=== PATIENT | male | born 1950 | race Two or more races ===

== ENCOUNTER 2024-07-13 04:09 | Inpatient (IN) | payer OTHER ==
[2024-07-13] VITALS (45 sets, daily range): BP systolic 88–141; BP diastolic 44–96; TEMP 98–98.8; O2SAT 99–100
[~2024-07-13] VITALS: Ht 152.4 cm; Wt 54.0 kg
[2024-07-13] MEDS ORDERED: ACETAMINOPHEN 650 MG/SUPP.RECT RC ONE (04:14)
[2024-07-13] MEDS ORDERED: VANCOMYCIN 1 GM /D5W 250 ML PB IV ONE (04:14)
[2024-07-13] MEDS ORDERED: CEFEPIME 1 GM VIAL ONE (04:14)
[2024-07-13] MEDS: CEFEPIME 1 GM in IV D5W 50 ML IV ONE (04:18)
[2024-07-13 04:29] LABS: BASOPHILS % (AUTO) 0.1 % (0.0-2.0); EOSINOPHILS # (AUTO) 0.1 K/uL (0.0-0.7); EOSINOPHILS % (AUTO) 0.3 % (0.0-6.0); HEMATOCRIT 37 % (39-51); HEMOGLOBIN 11.7 g/dL (13.5-17.5); LYMPHOCYTES # (AUTO) 0.6 K/uL (0.8-4.8); LYMPHOCYTES % (AUTO) 3.8 % (20.0-44.0); MEAN CORPUSCULAR HEMOGLOBIN 28 PG (26.0-33.0); MEAN CORPUSCULAR HGB CONC 31 g/dl (31.0-36.0); MEAN CORPUSCULAR VOLUME 89 fL (80-96); MONOCYTES # (AUTO) 0.7 K/uL (0.1-1.30); MONOCYTES % (AUTO) 4.4 % (2.0-12.0); NEUTROPHILS # (AUTO) 15.4 K/uL (1.8-8.9); NEUTROPHILS % (AUTO) 91.4 % (43.0-81.0); PLATELET COUNT (AUTO) 415 K/uL (150-450); RED CELL DISTRIBUTION WIDTH 17.5 % (11.5-15.0); WHITE BLOOD COUNT (AUTO) 16.9 K/uL (4.3-11.0)
[2024-07-13] MEDS: IV NS 0.9% 1,000 ML BAG IV ONE (04:38)
[2024-07-13] MEDS: ACETAMINOPHEN 650 MG/SUPP.RECT RC ONE (04:38)
[2024-07-13] MEDS: VANCOMYCIN 1 GM in IV D5W 250 ML IV ONE (04:39)
[2024-07-13 04:44] LABS: INR 1.27 (0.91-1.10); PARTIAL THROMBOPLASTIN TIME 33.2 SEC (24.3-34.3); PROTHROMBIN TIME 13.3 SECS (9.2-11.1)
[2024-07-13 04:58] LABS: APPEARANCE,URINE CLEAR (CLEAR); BILIRUBIN,URINE NEGATIVE (NEGATIVE); BLOOD, URINE NEGATIVE Ery/uL (NEGATIVE); COLOR,URINE YELLOW (YELLOW); KETONES,URINE NEGATIVE (NEGATIVE); LEUKOCYTE ESTERASE ,URINE NEGATIVE (NEGATIVE); NITRITE, URINE NEGATIVE (NEGATIVE); PROTEIN,URINE 2+ mg/dl (NEGATIVE); UGLUCOSE NEGATIVE (NEGATIVE); UROBILINOGEN,URINE 0.2 EU/dL (0.2)
[2024-07-13 05:02] LABS: CALCIUM, SERUM 9.4 mg/dL (8.5-10.1); CARBON DIOXIDE 31 mmol/L (21-32); CHLORIDE 104 mmol/L (98-107); CREATININE 1.1 mg/dL (0.6-1.3); GLUCOSE 70 mg/dL (74-106); POTASSIUM 4.9 mmol/L (3.5-5.1); SODIUM SERUM 141 mmol/L (136-145); UREA NITROGEN, BLOOD 41 mg/dL (7-18)
[2024-07-13 05:05] LABS: BAND % (MANUAL) 6 % (0.0-5.0); EOSINOPHILS % (MANUAL) 1 % (0-4); LYMPHOCYTES % (MANUAL) 4 % (16-48); MONOCYTES % (MANUAL) 4 % (0-11.0); NEUTROPHILS % (MANUAL) 85 (42-76); PLATELET ESTIMATE ADEQUATE
[2024-07-13 05:08] LABS: ALANINE AMINOTRANSFERASE 37 U/L (12-78); ALBUMIN 2.3 g/dL (3.4-5.0); ALKALINE PHOSPHATASE 184 U/L (46-116); ASPARTATE AMINOTRANSFERASE 30 U/L (15-37); BILIRUBIN,DIRECT 0.1 mg/dL (0.0-0.2); BILIRUBIN,TOTAL 0.3 mg/dL (0.2-1.0); TOTAL PROTEIN, SERUM 8.9 g/dL (6.4-8.2)
[2024-07-13 05:10] LABS: LACTIC ACID 1.9 mmol/L (0.4-2.0)
[2024-07-13 05:49] LABS: ADD URINE CULTURE NO; BACTERIA,URINE None seen /HPF (None Seen); MUCUS,URINE Moderate /LPF (None Seen); RBC,URINE NONE SEEN /HPF (0-2); SQUAMOUS EPITHELIAL CELL,UR None Seen /HPF (None Seen); WBC,URINE NONE SEEN /HPF (0-3)
[2024-07-13] MEDS ORDERED: NOREPINEPHRINE 8MG/250ML RTU 250 ML IV ONE (05:54)
[2024-07-13] MEDS: NOREPINEPHRINE 8 MG in IV D5W 242 ML IV PRN ×2 (06:01→20:56)
[2024-07-13] MEDS ORDERED: CICL60SU2 TP (09:12)
[2024-07-13] MEDS ORDERED: MINO2.5T GT (09:12)
[2024-07-13] MEDS ORDERED: MULT-213 GT (09:12)
[2024-07-13] MEDS ORDERED: NA P133E RC (09:12)
[2024-07-13] MEDS ORDERED: INSU100V7 SQ (09:12)
[2024-07-13] MEDS ORDERED: NUT.237L30 GT (09:12)
[2024-07-13] MEDS ORDERED: LOSA100T31 GT (09:12)
[2024-07-13] MEDS ORDERED: PANT40SU2 GT (09:12)
[2024-07-13] MEDS ORDERED: METO50TA16 GT (09:12)
[2024-07-13] MEDS ORDERED: METF-440 GT (09:12)
[2024-07-13] MEDS ORDERED: ATOR20TA GT (09:12)
[2024-07-13] MEDS ORDERED: BISA10SU11 RC (09:12)
[2024-07-13] MEDS ORDERED: ACET-73 GT (09:12)
[2024-07-13] MEDS ORDERED: CHLO473M5 PO (09:12)
[2024-07-13] MEDS ORDERED: EPOE1000 SQ (09:12)
[2024-07-13] MEDS ORDERED: IPRA4AER IH ×2 (09:12)
[2024-07-13] MEDS ORDERED: DOCU100C36 GT (09:12)
[2024-07-13] MEDS ORDERED: INSU100V42 SQ (09:12)
[2024-07-13] MEDS ORDERED: FERR220S2 GT (09:12)
[2024-07-13] MEDS ORDERED: MAGN400O6 GT (09:12)
[2024-07-13] MEDS ORDERED: ASCO500L2 GT (09:12)
[2024-07-13] MEDS ORDERED: LOPE2CAP GT (09:12)
[2024-07-13] MEDS ORDERED: APIX5TAB GT (09:12)
[2024-07-13] MEDS ORDERED: ASPI-1169 GT (09:12)
[2024-07-13] MEDS ORDERED: FLUO30CR11 TP (09:12)
[2024-07-13] MEDS ORDERED: ACET325T53 GT (09:12)
[2024-07-13] MEDS ORDERED: NA PHOS,M-B/NA PHOS,DI-BA 1 EA ENEMA RC PRN (11:00)
[2024-07-13] MEDS ORDERED: MAGNESIUM HYDROXIDE 30 ML UDC GT PRN (11:00)
[2024-07-13] MEDS ORDERED: ACETAMINOPHEN ES 500 MG TABLET GT PRN (11:00)
[2024-07-13] MEDS ORDERED: LOPERAMIDE HCL (2 MG CAP) 2 MG CAPSULE GT PRN (11:00)
[2024-07-13] MEDS ORDERED: BISACODYL SUPP (10 MG) 10 MG/SUPP.RECT SUPP.RECT RC PRN (11:00)
[2024-07-13] MEDS ORDERED: ACETAMINOPHEN 325 MG TABLET PO PRN (11:00)
[2024-07-13] MEDS ORDERED: ALBUTEROL FS 2.5 MG/3 ML VIAL.NEB NEB PRN (11:30)
[2024-07-13] MEDS ORDERED: IPRATROPIUM NEB FS 0.5 MG/2.5 ML AMPUL.NEB NEB PRN (11:30)
[2024-07-13] MEDS ORDERED: PIPERACILLIN /TAZOBACTAM 3.375 G in IV D5W 50 ML IV SCH (12:00)
[2024-07-13] MEDS ORDERED: PIPERACILLIN /TAZOBACTAM 3.375 G in IV D5W 50 ML IV ONE (12:22)
[2024-07-13] MEDS: IV NS 0.9% 1,000 ML IV PRN (12:54)
[2024-07-13] MEDS: PIPERACILLIN /TAZOBACTAM 3.375 G in IV D5W 50 ML IV ONE (13:06)
[2024-07-13] MEDS: PANTOPRAZOLE 40 MG VIAL IV ONE (13:18)
[2024-07-13] MEDS: BLOOD SUGAR DIAGNOSTIC 1 EACH STRIP IN SCH (13:18)
[2024-07-13] MEDS: DEXTROSE 50%-WATER 50 ML DISP.SYRIN IV PRN (13:22)
[2024-07-13] MEDS: ALBUTEROL FS 2.5 MG/3 ML VIAL.NEB NEB SCH (13:30)
[2024-07-13] MEDS: IPRATROPIUM NEB FS 0.5 MG/2.5 ML AMPUL.NEB NEB SCH (13:30)
[2024-07-13] MEDS: VANCOMYCIN 750 MG in IV D5W 250 ML IV SCH (16:00)
[2024-07-13] MEDS: PIPERACILLIN /TAZOBACTAM 3.375 G in IV D5W 100 ML IV SCH (18:20)
[2024-07-13] MEDS: IV D5/0.45 NACL 1,000 ML IV PRN (20:49)
[2024-07-13] MEDS ORDERED: CICLOPIROX OLAMINE TP SCH (21:00)
[2024-07-13] MEDS: FLUOCINONIDE 0.05% CREAM 60 GM TUBE TP SCH (21:03)
[2024-07-13] MEDS: ATORVASTATIN 10 MG TABLET GT SCH (21:03)
[2024-07-13] MEDS ORDERED: METOPROLOL TARTRATE 50 MG TABLET GT SCH (22:00)
[2024-07-13] MEDS: PANTOPRAZOLE 40 MG VIAL IV SCH (23:08)
[2024-07-13] MEDS: INSULIN REGULAR, HUMAN 100 UNIT/ML 3 ML VIAL SQ PRN (23:21)
[2024-07-14] VITALS (94 sets, daily range): BP systolic 84–137; BP diastolic 45–77; TEMP 97.5–99.8; O2SAT 99–100
[2024-07-14 04:09] LABS: BASOPHILS % (AUTO) 0.2 % (0.0-2.0); EOSINOPHILS # (AUTO) 0.5 K/uL (0.0-0.7); EOSINOPHILS % (AUTO) 2.6 % (0.0-6.0); HEMATOCRIT 29 % (39-51); HEMOGLOBIN 8.8 g/dL (13.5-17.5); LYMPHOCYTES # (AUTO) 1.8 K/uL (0.8-4.8); LYMPHOCYTES % (AUTO) 9.1 % (20.0-44.0); MEAN CORPUSCULAR HEMOGLOBIN 28 PG (26.0-33.0); MEAN CORPUSCULAR HGB CONC 31 g/dl (31.0-36.0); MEAN CORPUSCULAR VOLUME 90 fL (80-96); MONOCYTES # (AUTO) 0.9 K/uL (0.1-1.30); MONOCYTES % (AUTO) 4.4 % (2.0-12.0); NEUTROPHILS # (AUTO) 16.7 K/uL (1.8-8.9); NEUTROPHILS % (AUTO) 83.7 % (43.0-81.0); PLATELET COUNT (AUTO) 312 K/uL (150-450); RED BLOOD CELL COUNT(AUTO) 3.17 MIL/uL (4.5-6.0); RED CELL DISTRIBUTION WIDTH 17.1 % (11.5-15.0); WHITE BLOOD COUNT (AUTO) 19.9 K/uL (4.3-11.0)
[2024-07-14 04:31] LABS: ALANINE AMINOTRANSFERASE 19 U/L (12-78); ALBUMIN 1.8 g/dL (3.4-5.0); ALKALINE PHOSPHATASE 116 U/L (46-116); ASPARTATE AMINOTRANSFERASE 16 U/L (15-37); BILIRUBIN,TOTAL 0.3 mg/dL (0.2-1.0); CALCIUM, SERUM 8.4 mg/dL (8.5-10.1); CARBON DIOXIDE 27 mmol/L (21-32); CHLORIDE 105 mmol/L (98-107); CREATININE 1.2 mg/dL (0.6-1.3); GLUCOSE 190 mg/dL (74-106); POTASSIUM 3.9 mmol/L (3.5-5.1); SODIUM SERUM 139 mmol/L (136-145); UREA NITROGEN, BLOOD 34 mg/dL (7-18)
[2024-07-14] MEDS: ASPIRIN 81 MG TAB.CHEW GT SCH (09:00)
[2024-07-14] MEDS: MULTIVIT W/MINERALS 1 TAB TABLET GT SCH (09:00)
[2024-07-14] MEDS: PANTOPRAZOLE 40 MG/PACK PACK GT SCH (09:00)
[2024-07-14] MEDS: ASCORBIC ACID 500 MG TABLET GT SCH (09:00)
[2024-07-14] MEDS: FERROUS SULFATE UDC 300 MG/5 ML UDC GT SCH (09:00)
[2024-07-14] MEDS ORDERED: LOSARTAN POTASSIUM 50 MG TABLET GT SCH (09:00)
[2024-07-14] MEDS ORDERED: GLUCERNA 1.2 1,000 ML BOTTLE JT PRN (11:00)
[2024-07-14] MEDS: INSULIN GLARGINE, 100 UNIT/ML CARTRIDGE SQ SCH (11:22)
[2024-07-14] MEDS: SOD FERRIC GLUC 125 MG in IV NS 0.9% 100 ML IV SCH (13:10)
[2024-07-14] MEDS: GLUCERNA 1.2 1,000 ML BOTTLE JT PRN (17:00)
[2024-07-15] VITALS (48 sets, daily range): BP systolic 97–151; BP diastolic 46–85; TEMP 97.8–99.1; O2SAT 98–100
[2024-07-15 05:46] LABS: BASOPHILS % (AUTO) 0.1 % (0.0-2.0); EOSINOPHILS # (AUTO) 0.7 K/uL (0.0-0.7); EOSINOPHILS % (AUTO) 6.8 % (0.0-6.0); HEMATOCRIT 27 % (39-51); HEMOGLOBIN 8.7 g/dL (13.5-17.5); LYMPHOCYTES % (AUTO) 9.7 % (20.0-44.0); MEAN CORPUSCULAR HEMOGLOBIN 29 PG (26.0-33.0); MEAN CORPUSCULAR HGB CONC 32 g/dl (31.0-36.0); MEAN CORPUSCULAR VOLUME 91 fL (80-96); MONOCYTES # (AUTO) 0.6 K/uL (0.1-1.30); MONOCYTES % (AUTO) 5.9 % (2.0-12.0); NEUTROPHILS # (AUTO) 8.4 K/uL (1.8-8.9); NEUTROPHILS % (AUTO) 77.5 % (43.0-81.0); PLATELET COUNT (AUTO) 265 K/uL (150-450); RED BLOOD CELL COUNT(AUTO) 3.02 MIL/uL (4.5-6.0); RED CELL DISTRIBUTION WIDTH 17.6 % (11.5-15.0); WHITE BLOOD COUNT (AUTO) 10.8 K/uL (4.3-11.0)
[2024-07-15 06:01] LABS: CALCIUM, SERUM 8.3 mg/dL (8.5-10.1); CARBON DIOXIDE 29 mmol/L (21-32); CHLORIDE 106 mmol/L (98-107); CREATININE 1.1 mg/dL (0.6-1.3); GLUCOSE 123 mg/dL (74-106); MAGNESIUM 2.4 mg/dL (1.8-2.4); POTASSIUM 3.8 mmol/L (3.5-5.1); SODIUM SERUM 137 mmol/L (136-145); UREA NITROGEN, BLOOD 24 mg/dL (7-18)
[2024-07-16] VITALS (21 sets, daily range): BP systolic 118–175; BP diastolic 59–83; TEMP 97.9–98.4; O2SAT 99–100
[2024-07-16 05:17] LABS: BASOPHILS % (AUTO) 0.2 % (0.0-2.0); EOSINOPHILS # (AUTO) 0.9 K/uL (0.0-0.7); EOSINOPHILS % (AUTO) 9.9 % (0.0-6.0); HEMATOCRIT 27 % (39-51); HEMOGLOBIN 8.4 g/dL (13.5-17.5); LYMPHOCYTES # (AUTO) 1.1 K/uL (0.8-4.8); MEAN CORPUSCULAR HEMOGLOBIN 28 PG (26.0-33.0); MEAN CORPUSCULAR HGB CONC 32 g/dl (31.0-36.0); MEAN CORPUSCULAR VOLUME 90 fL (80-96); MONOCYTES # (AUTO) 0.5 K/uL (0.1-1.30); MONOCYTES % (AUTO) 6.2 % (2.0-12.0); NEUTROPHILS # (AUTO) 6.1 K/uL (1.8-8.9); NEUTROPHILS % (AUTO) 70.7 % (43.0-81.0); PLATELET COUNT (AUTO) 267 K/uL (150-450); RED BLOOD CELL COUNT(AUTO) 2.97 MIL/uL (4.5-6.0); RED CELL DISTRIBUTION WIDTH 17.2 % (11.5-15.0); WHITE BLOOD COUNT (AUTO) 8.6 K/uL (4.3-11.0)
[2024-07-16] MEDS: LOSARTAN POTASSIUM 50 MG TABLET PO SCH (05:24)
[2024-07-16] MEDS: LOSARTAN POTASSIUM 50 MG TABLET GT SCH (05:30)
[2024-07-16 05:31] LABS: CALCIUM, SERUM 6.9 mg/dL (8.5-10.1); CARBON DIOXIDE 25 mmol/L (21-32); CHLORIDE 108 mmol/L (98-107); GLUCOSE 165 mg/dL (74-106); POTASSIUM 3.7 mmol/L (3.5-5.1); SODIUM SERUM 139 mmol/L (136-145); UREA NITROGEN, BLOOD 15 mg/dL (7-18)
[2024-07-16] MEDS ORDERED: PIPE3.379 IV (07:59)
[2024-07-16] MEDS ORDERED: APIX5TAB GT (07:59)
[2024-07-16] MEDS: METOPROLOL SUCCINATE 50 MG TAB.SR.24H PO SCH (08:00)
[2024-07-16] MEDS: LOSARTAN POTASSIUM 50 MG TABLET PO ONE (08:11)
[2024-07-16] MEDS: VANCOMYCIN 1 GM in IV D5W 250ml IV SCH (08:53)
[2024-07-16] MEDS: hydrALAZINE HCL IV 20 MG VIAL IV PRN (17:47)
[2024-07-17] MEDS ORDERED: LOSARTAN POTASSIUM 50 MG TABLET GT SCH (09:00)
== END 2024-07-16 22:15 | DRG 871 ==
LOC: ER 04:11 → ICU 10:40
PROVIDERS: ADMIT Internal Medicine; ATTEND Internal Medicine
PROC: 5A1945Z Respiratory Ventilation, 24-96 Consecutive Hours (ICD-10-PCS; principal; 2024-07-13)
PROC: 02HV33Z Insertion of Infusion Device into Superior Vena Cava, Percutaneous Approach (ICD-10-PCS; 2024-07-13)
PROC: B548ZZA Ultrasonography of Superior Vena Cava, Guidance (ICD-10-PCS; 2024-07-13)
DX: A41.9 Sepsis, unspecified organism (principal); J69.0 Pneumonitis due to inhalation of food and vomit; R65.21 Severe sepsis with septic shock; R57.1 Hypovolemic shock; R53.2 Functional quadriplegia; J96.10 Chronic respiratory failure, unspecified whether with hypoxia or hypercapnia; K92.2 Gastrointestinal hemorrhage, unspecified; Z99.11 Dependence on respirator [ventilator] status; G93.49 Other encephalopathy; F33.2 Major depressive disorder, recurrent severe without psychotic features; F03.93 Unspecified dementia, unspecified severity, with mood disturbance; D64.9 Anemia, unspecified; E78.5 Hyperlipidemia, unspecified; I10 Essential (primary) hypertension; Z86.73 Personal history of transient ischemic attack (TIA), and cerebral infarction without residual deficits; Z87.11 Personal history of peptic ulcer disease; Z93.0 Tracheostomy status; Y95 Nosocomial condition; R13.10 Dysphagia, unspecified; Z93.1 Gastrostomy status; Z20.822 Contact with and (suspected) exposure to COVID-19; N40.0 Benign prostatic hyperplasia without lower urinary tract symptoms; S91.012A Laceration without foreign body, left ankle, initial encounter; X58.XXXA Exposure to other specified factors, initial encounter; Y93.9 Activity, unspecified; Y92.129 Unspecified place in nursing home as the place of occurrence of the external cause; E11.40 Type 2 diabetes mellitus with diabetic neuropathy, unspecified; Z79.4 Long term (current) use of insulin; Z79.84 Long term (current) use of oral hypoglycemic drugs; Z74.01 Bed confinement status; L89.159 Pressure ulcer of sacral region, unspecified stage
CPT/HCPCS: 31720; 36415; 71045-TC; 80048-TC; 80053-TC; 80076-TC; 80202-TC; 81001; 82947-TC; 82962-TC; 83605-TC; 83735-TC; 84484-TC; 85025-TC; 85730-TC; 87040-TC; 87086-TC; 94002-TC; 94003-TC; 94762-TC; 94799-TC; A4223; G0378; J0360; J0692; J1815; J2470; J2543; J2916; J3370; J3371; J3490; J7030; J7050; J7060

== ENCOUNTER 2024-11-01 10:00 | Inpatient (IN) | payer OTHER ==
[~2024-11-01] VITALS: Ht 175.3 cm; Wt 73.0 kg
[~2024-11-01 10:00] MED LIST: ACET-73 GT; ACET325T53 GT; AMOX-430 PO; ASCO500L2 GT; ATOR20TA GT; BETA45CR3 TP; BISA10SU11 RC; CHLO473M5 PO; DIPH25TA25 GT; FERR220S2 GT; INSU100I45 SQ; INSU100V42 SQ; IPRA4AER IH; IVER3TAB2 GT; KETO15CR2 TP; LOPE2CAP GT; LOSA25TA27 PO; MAGN400O6 GT; MERO1VIA23 IV; METO25TA6 GT; MINO2.5T GT; NA P133E RC; NUT.237L30 GT; PANT40SU2 GT; SUCR1TAB31 PO
[2024-11-01] MEDS: IV NS 0.9% 1,000 ML BAG IV ONE (10:16)
[2024-11-01] MEDS: PIPERACILLIN /TAZOBACTAM 3.375 G in IV D5W 50 ML IV ONE (10:22)
[2024-11-01 10:53] LABS: BASOPHILS % (AUTO) 0.1 % (0.0-2.0); EOSINOPHILS # (AUTO) 0.2 K/uL (0.0-0.7); EOSINOPHILS % (AUTO) 3.8 % (0.0-6.0); LYMPHOCYTES # (AUTO) 0.8 K/uL (0.8-4.8); LYMPHOCYTES % (AUTO) 12.4 % (20.0-44.0); MEAN CORPUSCULAR HEMOGLOBIN 33 PG (26.0-33.0); MEAN CORPUSCULAR HGB CONC 34 g/dl (31.0-36.0); MEAN CORPUSCULAR VOLUME 96 fL (80-96); MONOCYTES # (AUTO) 0.5 K/uL (0.1-1.30); MONOCYTES % (AUTO) 8.6 % (2.0-12.0); NEUTROPHILS # (AUTO) 4.6 K/uL (1.8-8.9); NEUTROPHILS % (AUTO) 75.1 % (43.0-81.0); PLATELET COUNT (AUTO) 268 K/uL (150-450); RED CELL DISTRIBUTION WIDTH 14.3 % (11.5-15.0); WHITE BLOOD COUNT (AUTO) 6.1 K/uL (4.3-11.0)
[2024-11-01 10:54] LABS: RED BLOOD CELL COUNT(AUTO) 1.99 MIL/uL (4.5-6.0)
[2024-11-01 10:55] LABS: HEMATOCRIT 19 % (39-51); HEMOGLOBIN 6.5 g/dL (13.5-17.5)
[2024-11-01 10:58] LABS: CALCIUM, SERUM 9.9 mg/dL (8.5-10.1); CARBON DIOXIDE 30 mmol/L (21-32); CHLORIDE 82 mmol/L (98-107); CREATININE 5.8 mg/dL (0.6-1.3); GLUCOSE 117 mg/dL (74-106); POTASSIUM 5.3 mmol/L (3.5-5.1)
[2024-11-01 10:59] LABS: INR 1.12 (0.91-1.10); PARTIAL THROMBOPLASTIN TIME 28.3 SEC (24.3-34.3); PROTHROMBIN TIME 11.8 SECS (9.2-11.1)
[2024-11-01] MEDS: VANCOMYCIN 1 GM in IV D5W 250 ML IV ONE (11:00)
[2024-11-01 11:03] LABS: LACTIC ACID 1.4 mmol/L (0.4-2.0)
[2024-11-01 11:07] LABS: APPEARANCE,URINE CLEAR (CLEAR); BILIRUBIN,URINE NEGATIVE (NEGATIVE); BLOOD, URINE NEGATIVE Ery/uL (NEGATIVE); COLOR,URINE YELLOW (YELLOW); KETONES,URINE NEGATIVE (NEGATIVE); LEUKOCYTE ESTERASE ,URINE NEGATIVE (NEGATIVE); NITRITE, URINE NEGATIVE (NEGATIVE); PROTEIN,URINE 2+ mg/dl (NEGATIVE); UGLUCOSE NEGATIVE (NEGATIVE); UROBILINOGEN,URINE 0.2 EU/dL (0.2)
[2024-11-01] MEDS ORDERED: ASCO500T10 GT (11:08)
[2024-11-01] MEDS ORDERED: PERM60CR4 TP (11:08)
[2024-11-01] MEDS ORDERED: ZINC56.713 TP (11:08)
[2024-11-01] MEDS ORDERED: FERR325T24 GT (11:08)
[2024-11-01] MEDS ORDERED: AMIN30LI66 GT (11:08)
[2024-11-01] MEDS ORDERED: LOSA25TA27 GT (11:08)
[2024-11-01 11:10] LABS: ALANINE AMINOTRANSFERASE 17 U/L (12-78); ALBUMIN 2.1 g/dL (3.4-5.0); ALKALINE PHOSPHATASE 324 U/L (46-116); ASPARTATE AMINOTRANSFERASE 20 U/L (15-37); BILIRUBIN,DIRECT 0.2 mg/dL (0.0-0.2); BILIRUBIN,TOTAL 0.4 mg/dL (0.2-1.0)
[2024-11-01 11:18] LABS: SODIUM SERUM 118 mmol/L (136-145); UREA NITROGEN, BLOOD 136 mg/dL (7-18)
[2024-11-01 11:23] LABS: ADD URINE CULTURE YES; BACTERIA,URINE Few /HPF (None Seen); RBC,URINE 0-2 /HPF (0-2); SQUAMOUS EPITHELIAL CELL,UR None Seen /HPF (None Seen)
[2024-11-01 11:42] LABS: ANISOCYTOSIS 1+; EOSINOPHILS % (MANUAL) 6 % (0-4); LYMPHOCYTES % (MANUAL) 20 % (16-48); MONOCYTES % (MANUAL) 7 % (0-11.0); NEUTROPHILS % (MANUAL) 67 (42-76); PLATELET ESTIMATE ADEQUATE
[2024-11-01] MEDS: PANTOPRAZOLE 80 MG in IV NS 0.9% 500 ML IV ONE (12:40)
[2024-11-01 13:50] VITALS: BP 120/56; TEMP 97.2; O2SAT 100
[2024-11-01] MEDS ORDERED: LOPERAMIDE HCL (2 MG CAP) 2 MG CAPSULE GT PRN (14:00)
[2024-11-01] MEDS ORDERED: MAGNESIUM HYDROXIDE 30 ML UDC GT PRN (14:00)
[2024-11-01] MEDS ORDERED: NA PHOS,M-B/NA PHOS,DI-BA 1 EA ENEMA RC PRN (14:00)
[2024-11-01] MEDS ORDERED: BISACODYL SUPP (10 MG) 10 MG/SUPP.RECT SUPP.RECT RC PRN (14:00)
[2024-11-01] MEDS ORDERED: diphenhydrAMINE HCL ELIX 25 MG/10 ML UDC GT PRN (14:30)
[2024-11-01] MEDS ORDERED: ALBUTEROL FS 2.5 MG/3 ML VIAL.NEB NEB PRN (14:30)
[2024-11-01] MEDS ORDERED: IPRATROPIUM NEB FS 0.5 MG/2.5 ML AMPUL.NEB NEB PRN (14:30)
[2024-11-01] MEDS: IV NS 0.9% 1,000 ML IV SCH (15:48)
[2024-11-01 16:00] VITALS: BP 94/47; TEMP 97.3; O2SAT 100
[2024-11-01] MEDS ORDERED: FERROUS SULFATE (325 MG) 325 MG/TAB TABLET GT SCH (17:00)
[2024-11-01] MEDS: PIPERACILLIN /TAZOBACTAM 2.25 G in IV D5W 50 ML IV SCH (17:36)
[2024-11-01] MEDS: PROSOURCE / PROSTAT (PYXIS) 30 ML UDC GT SCH (17:36)
[2024-11-01] MEDS: FERROUS SULFATE UDC 300 MG/5 ML UDC GT SCH (17:36)
[2024-11-01 20:00] VITALS: BP 96/48; TEMP 97.8; O2SAT 100
[2024-11-01 20:21] LABS: HEMOGLOBIN 7.9 g/dL (13.5-17.5)
[2024-11-01] MEDS: IPRATROPIUM NEB FS 0.5 MG/2.5 ML AMPUL.NEB NEB SCH (20:24)
[2024-11-01] MEDS: ALBUTEROL FS 2.5 MG/3 ML VIAL.NEB NEB SCH (20:24)
[2024-11-01] MEDS: PANTOPRAZOLE 40 MG/PACK PACK GT SCH (21:05)
[2024-11-01] MEDS: ATORVASTATIN 10 MG TABLET GT SCH (21:05)
[2024-11-02] VITALS: BP 100/65; TEMP 97.5; O2SAT 100
[2024-11-02 04:00] VITALS: BP 110/65; TEMP 97.7; O2SAT 100
[2024-11-02 08:00] VITALS: BP 112/54; TEMP 97.5; O2SAT 100
[2024-11-02] MEDS: ASCORBIC ACID 500 MG TABLET GT SCH (08:25)
[2024-11-02] MEDS: ZINC OXIDE 56.7 GM TUBE TP SCH (08:26)
[2024-11-02 10:23] LABS: BASOPHILS % (AUTO) 0.1 % (0.0-2.0); EOSINOPHILS # (AUTO) 0.9 K/uL (0.0-0.7); EOSINOPHILS % (AUTO) 9.7 % (0.0-6.0); HEMATOCRIT 23 % (39-51); HEMOGLOBIN 7.9 g/dL (13.5-17.5); LYMPHOCYTES # (AUTO) 0.7 K/uL (0.8-4.8); LYMPHOCYTES % (AUTO) 7.5 % (20.0-44.0); MEAN CORPUSCULAR HEMOGLOBIN 31 PG (26.0-33.0); MEAN CORPUSCULAR HGB CONC 34 g/dl (31.0-36.0); MEAN CORPUSCULAR VOLUME 91 fL (80-96); MONOCYTES # (AUTO) 0.5 K/uL (0.1-1.30); MONOCYTES % (AUTO) 5.8 % (2.0-12.0); NEUTROPHILS # (AUTO) 7.2 K/uL (1.8-8.9); NEUTROPHILS % (AUTO) 76.9 % (43.0-81.0); PLATELET COUNT (AUTO) 261 K/uL (150-450); RED BLOOD CELL COUNT(AUTO) 2.51 MIL/uL (4.5-6.0); RED CELL DISTRIBUTION WIDTH 20.7 % (11.5-15.0); WHITE BLOOD COUNT (AUTO) 9.3 K/uL (4.3-11.0)
[2024-11-02 10:24] LABS: BILIRUBIN,TOTAL 0.5 mg/dL (0.2-1.0); CALCIUM, SERUM 9.8 mg/dL (8.5-10.1); CREATININE 5.7 mg/dL (0.6-1.3); POTASSIUM 4.8 mmol/L (3.5-5.1); TOTAL PROTEIN, SERUM 6.6 g/dL (6.4-8.2)
[2024-11-02 10:26] LABS: LACTIC ACID 1.2 mmol/L (0.4-2.0)
[2024-11-02 12:00] VITALS: BP 118/64; TEMP 97.5; O2SAT 100
[2024-11-02 16:00] VITALS: BP 127/61; TEMP 98.2; O2SAT 97
[2024-11-02] MEDS: GLUCERNA 1.2 1,000 ML BOTTLE NG PRN (17:55)
[2024-11-02] MEDS: METOPROLOL TARTRATE 25 MG TABLET PO SCH (18:48)
[2024-11-02 20:00] VITALS: BP 123/69; TEMP 99.5; O2SAT 99
[2024-11-02] MEDS: IV NS 0.9% 1,000 ML IV PRN (23:56)
[2024-11-03] VITALS: BP 117/93; TEMP 99.5; O2SAT 99
[2024-11-03 04:00] VITALS: BP 130/73; TEMP 99.5; O2SAT 100
[2024-11-03 06:46] LABS: OCCULT BLOOD STOOL POSITIVE (NEGATIVE)
[2024-11-03 07:21] LABS: BASOPHILS % (AUTO) 0.1 % (0.0-2.0); EOSINOPHILS # (AUTO) 0.3 K/uL (0.0-0.7); EOSINOPHILS % (AUTO) 3.5 % (0.0-6.0); HEMATOCRIT 23 % (39-51); HEMOGLOBIN 8.2 g/dL (13.5-17.5); LYMPHOCYTES # (AUTO) 0.5 K/uL (0.8-4.8); LYMPHOCYTES % (AUTO) 5.6 % (20.0-44.0); MEAN CORPUSCULAR HEMOGLOBIN 32 PG (26.0-33.0); MEAN CORPUSCULAR HGB CONC 35 g/dl (31.0-36.0); MEAN CORPUSCULAR VOLUME 92 fL (80-96); MONOCYTES # (AUTO) 0.6 K/uL (0.1-1.30); MONOCYTES % (AUTO) 6.4 % (2.0-12.0); NEUTROPHILS # (AUTO) 8.1 K/uL (1.8-8.9); NEUTROPHILS % (AUTO) 84.4 % (43.0-81.0); PLATELET COUNT (AUTO) 279 K/uL (150-450); RED BLOOD CELL COUNT(AUTO) 2.52 MIL/uL (4.5-6.0); RED CELL DISTRIBUTION WIDTH 20.4 % (11.5-15.0); WHITE BLOOD COUNT (AUTO) 9.6 K/uL (4.3-11.0)
[2024-11-03 07:32] LABS: CALCIUM, SERUM 9.1 mg/dL (8.5-10.1); CREATININE 5.4 mg/dL (0.6-1.3)
[2024-11-03 08:10] VITALS: BP 118/84; TEMP 98.3; O2SAT 99
[2024-11-03] MEDS: VANCOMYCIN HCL 1.25 GM in IV D5W 250 ML IV ONE (11:17)
[2024-11-03 12:00] VITALS: BP 116/73; TEMP 97.3; O2SAT 94
[2024-11-03 16:02] VITALS: BP 133/73; TEMP 98.5; O2SAT 99
[2024-11-03 20:00] VITALS: BP 136/60; TEMP 98.3; O2SAT 97
[2024-11-04] VITALS: BP 146/68; TEMP 98.5; O2SAT 99
[2024-11-04] MEDS: ACETAMINOPHEN ES 500 MG TABLET GT PRN (02:33)
[2024-11-04] MEDS: GLUCERNA 1.2 1,000 ML BOTTLE NG PRN (03:02)
[2024-11-04 04:00] VITALS: BP 136/68; TEMP 98.5; O2SAT 95
[2024-11-04 06:56] LABS: BASOPHILS % (AUTO) 0.1 % (0.0-2.0); EOSINOPHILS # (AUTO) 0.1 K/uL (0.0-0.7); EOSINOPHILS % (AUTO) 1.3 % (0.0-6.0); HEMATOCRIT 25 % (39-51); HEMOGLOBIN 8.6 g/dL (13.5-17.5); LYMPHOCYTES # (AUTO) 0.6 K/uL (0.8-4.8); LYMPHOCYTES % (AUTO) 5.5 % (20.0-44.0); MEAN CORPUSCULAR HEMOGLOBIN 32 PG (26.0-33.0); MEAN CORPUSCULAR HGB CONC 35 g/dl (31.0-36.0); MEAN CORPUSCULAR VOLUME 93 fL (80-96); MONOCYTES # (AUTO) 0.6 K/uL (0.1-1.30); MONOCYTES % (AUTO) 5.1 % (2.0-12.0); NEUTROPHILS # (AUTO) 9.7 K/uL (1.8-8.9); PLATELET COUNT (AUTO) 318 K/uL (150-450); RED BLOOD CELL COUNT(AUTO) 2.68 MIL/uL (4.5-6.0)
[2024-11-04 07:05] LABS: CALCIUM, SERUM 8.5 mg/dL (8.5-10.1); CREATININE 5.4 mg/dL (0.6-1.3); POTASSIUM 5.3 mmol/L (3.5-5.1)
[2024-11-04 08:00] VITALS: BP 156/79; TEMP 98.5; O2SAT 95
[2024-11-04] MEDS: SODIUM POLYSTYRENE SULFONATE 15 G/60 ML BOTTLE GT SCH (10:02)
[2024-11-04] MEDS: FUROSEMIDE 40 MG/4 ML VIAL IV ONE (10:03)
[2024-11-04 12:00] VITALS: BP 160/100; TEMP 98.6; O2SAT 95
[2024-11-04] MEDS: CLONIDINE HCL 0.1 MG TABLET PO PRN (13:14)
[2024-11-04 16:00] VITALS: BP 147/89; TEMP 98.6; O2SAT 95
[2024-11-04] MEDS: METOPROLOL TARTRATE 25 MG TABLET PO SCH (17:23)
[2024-11-04 20:00] VITALS: BP 138/74; TEMP 98; O2SAT 100
[2024-11-05] VITALS: BP 151/76; TEMP 97.8; O2SAT 100
[2024-11-05 04:00] VITALS: BP 158/76; TEMP 97.6; O2SAT 97
[2024-11-05 06:33] LABS: EOSINOPHILS # (AUTO) 0.3 K/uL (0.0-0.7); EOSINOPHILS % (AUTO) 2.6 % (0.0-6.0); HEMATOCRIT 30 % (39-51); HEMOGLOBIN 9.6 g/dL (13.5-17.5); LYMPHOCYTES # (AUTO) 0.4 K/uL (0.8-4.8); LYMPHOCYTES % (AUTO) 3.1 % (20.0-44.0); MEAN CORPUSCULAR HEMOGLOBIN 31 PG (26.0-33.0); MEAN CORPUSCULAR HGB CONC 32 g/dl (31.0-36.0); MEAN CORPUSCULAR VOLUME 97 fL (80-96); MONOCYTES # (AUTO) 0.4 K/uL (0.1-1.30); MONOCYTES % (AUTO) 3.5 % (2.0-12.0); NEUTROPHILS # (AUTO) 11.2 K/uL (1.8-8.9); NEUTROPHILS % (AUTO) 90.8 % (43.0-81.0); PLATELET COUNT (AUTO) 273 K/uL (150-450); RED BLOOD CELL COUNT(AUTO) 3.15 MIL/uL (4.5-6.0); RED CELL DISTRIBUTION WIDTH 20.6 % (11.5-15.0); WHITE BLOOD COUNT (AUTO) 12.3 K/uL (4.3-11.0)
[2024-11-05 07:03] LABS: CREATININE 5.3 mg/dL (0.6-1.3); POTASSIUM 4.9 mmol/L (3.5-5.1)
[2024-11-05 08:00] VITALS: BP 118/68; TEMP 97.7; O2SAT 100
[2024-11-05] MEDS: FUROSEMIDE 20 MG/2 ML VIAL IV SCH (10:02)
[2024-11-05 12:00] VITALS: BP 137/76; TEMP 97.4; O2SAT 100
[2024-11-05 16:00] VITALS: BP 140/76; TEMP 97.3; O2SAT 100
[2024-11-05 20:00] VITALS: BP 155/79; TEMP 97.2; O2SAT 99
[2024-11-06] VITALS (7 sets, daily range): BP systolic 125–171; BP diastolic 71–86; TEMP 97.5–97.9; O2SAT 98–100
[2024-11-06 09:35] LABS: URINE TOTAL PROTEIN 113.2 mg/dL (0-11.9)
[2024-11-06 10:03] LABS: APPEARANCE,URINE SLIGHTLY CLOUDY (CLEAR); BILIRUBIN,URINE NEGATIVE (NEGATIVE); BLOOD, URINE 1+ Ery/uL (NEGATIVE); COLOR,URINE YELLOW (YELLOW); KETONES,URINE NEGATIVE (NEGATIVE); LEUKOCYTE ESTERASE ,URINE 3+ (NEGATIVE); NITRITE, URINE NEGATIVE (NEGATIVE); PROTEIN,URINE 2+ mg/dl (NEGATIVE); UGLUCOSE 1+ mg/dL (NEGATIVE); UROBILINOGEN,URINE 0.2 EU/dL (0.2)
[2024-11-06 10:04] LABS: ADD URINE CULTURE YES; BACTERIA,URINE 1+ /HPF (None Seen); WBC,URINE 81-100 /HPF (0-3)
[2024-11-06 10:07] LABS: CALCIUM OXALATE CRYSTALS,UR Rare /HPF (None Seen); MUCUS,URINE Few /LPF (None Seen); YEAST,URINE Many /HPF (None Seen)
[2024-11-06] MEDS ORDERED: VANCOMYCIN 1 GM in IV D5W 250 ML IV SCH (11:00)
[2024-11-06 11:41] LABS: EOSINOPHIL,URINE None Seen
[2024-11-06 12:35] LABS: BASOPHILS % (AUTO) 0.1 % (0.0-2.0); EOSINOPHILS # (AUTO) 0.4 K/uL (0.0-0.7); EOSINOPHILS % (AUTO) 3.4 % (0.0-6.0); HEMATOCRIT 25 % (39-51); HEMOGLOBIN 8.1 g/dL (13.5-17.5); LYMPHOCYTES # (AUTO) 0.9 K/uL (0.8-4.8); LYMPHOCYTES % (AUTO) 7.8 % (20.0-44.0); MEAN CORPUSCULAR HEMOGLOBIN 31 PG (26.0-33.0); MEAN CORPUSCULAR HGB CONC 32 g/dl (31.0-36.0); MEAN CORPUSCULAR VOLUME 97 fL (80-96); MONOCYTES # (AUTO) 0.6 K/uL (0.1-1.30); MONOCYTES % (AUTO) 5.3 % (2.0-12.0); NEUTROPHILS # (AUTO) 9.6 K/uL (1.8-8.9); NEUTROPHILS % (AUTO) 83.4 % (43.0-81.0); PLATELET COUNT (AUTO) 241 K/uL (150-450); RED CELL DISTRIBUTION WIDTH 20.6 % (11.5-15.0); WHITE BLOOD COUNT (AUTO) 11.5 K/uL (4.3-11.0)
[2024-11-06 12:54] LABS: ALBUMIN 1.9 g/dL (3.4-5.0); BILIRUBIN,TOTAL 0.4 mg/dL (0.2-1.0); CALCIUM, SERUM 6.9 mg/dL (8.5-10.1); CREATININE 5.4 mg/dL (0.6-1.3); MAGNESIUM 2.6 mg/dL (1.8-2.4); POTASSIUM 5.3 mmol/L (3.5-5.1); TOTAL PROTEIN, SERUM 6.9 g/dL (6.4-8.2)
[2024-11-06 14:04] LABS: PHOSPHORUS 8.9 mg/dL (2.5-4.9)
[2024-11-06] MEDS: SEVELAMER CARBONATE 800 MG POWD.PACK GT SCH (15:31)
[2024-11-06] MEDS: SODIUM ZIRCONIUM CYCLOSILICATE 10 GM POWD.PACK GT SCH (15:31)
[2024-11-06] MEDS: BLOOD SUGAR DIAGNOSTIC 1 EACH STRIP VI SCH (22:03)
[2024-11-06] MEDS: *INSULIN REGULAR(HUMULIN R)HUM 100 UNIT/ML VIAL SQ PRN (22:09)
[2024-11-07] VITALS: BP 139/72; TEMP 97.5; O2SAT 100
[2024-11-07 04:00] VITALS: BP 159/74; TEMP 97.7; O2SAT 100
[2024-11-07] MEDS: INSULIN REGULAR, HUMAN 100 UNIT/ML 3 ML VIAL SQ PRN (07:41)
[2024-11-07 08:00] VITALS: BP 155/87; TEMP 97.7; O2SAT 100
[2024-11-07 12:00] VITALS: BP 151/89; TEMP 97.3; O2SAT 100
[2024-11-07] MEDS: NEPRO 1,000 ML BOTTLE GT PRN (12:56)
[2024-11-07 13:47] LABS: CALCIUM, SERUM 7.1 mg/dL (8.5-10.1); CREATININE 4.2 mg/dL (0.6-1.3); POTASSIUM 3.8 mmol/L (3.5-5.1)
[2024-11-07 16:00] VITALS: BP 154/78; TEMP 97.7; O2SAT 98
[2024-11-07] MEDS: METOPROLOL TARTRATE 25 MG TABLET PO SCH (16:59)
[2024-11-07] MEDS: DEXTROSE 50%-WATER 50 ML DISP.SYRIN IV PRN (23:14)
[2024-11-08 04:00] VITALS: BP 138/74; TEMP 97.7; O2SAT 100
[2024-11-08 08:00] VITALS: BP 140/66; TEMP 97.7; O2SAT 100
[2024-11-08 08:07] LABS: COMPLEMENT C3, SERUM 111 mg/dL (82-167); COMPLEMENT C4, SERUM 27 mg/dL (12-38)
[2024-11-08] MEDS: THERAHONEY GEL 1.5 OZ TUBE TP SCH (09:01)
[2024-11-08 10:11] LABS: PTH, INTACT 174 pg/mL (15-65)
[2024-11-08 12:00] VITALS: BP 130/75; TEMP 97.6; O2SAT 100
[2024-11-08 16:00] VITALS: BP 133/71; TEMP 97.5; O2SAT 100
[2024-11-08 16:07] LABS: *SPE A/G RATIO 0.6 (0.7-1.7); *SPE ALBUMIN 2.3 g/dL (2.9-4.4); *SPE ALPHA-1-GLOBULIN 0.4 g/dL (0.0-0.4); *SPE ALPHA-2-GLOBULIN 0.9 g/dL (0.4-1.0); *SPE BETA GLOBULIN 0.8 g/dL (0.7-1.3); *SPE GLOBULIN, TOTAL 4.1 g/dL (2.2-3.9); *SPE M-SPIKE Not Observed g/dL (Not Observed); *SPE PROTEIN TOTAL 6.4 g/dL (6.0-8.5); *SPEGAMMA GLOBULIN 1.9 g/dL (0.4-1.8)
[2024-11-08 17:50] LABS: CREATININE 3.5 mg/dL (0.6-1.3); POTASSIUM 3.5 mmol/L (3.5-5.1)
[2024-11-08 22:00] VITALS: BP 165/74; TEMP 98.4; O2SAT 100
[2024-11-09] VITALS: BP 161/65; TEMP 98.2; O2SAT 100
[2024-11-09 04:00] VITALS: BP 149/75; TEMP 98.8; O2SAT 100
[2024-11-09 04:09] LABS: HEPATITIS B SURFACE AB Non Reactive (.)
[2024-11-09 06:40] LABS: BASOPHILS % (AUTO) 0.2 % (0.0-2.0); EOSINOPHILS # (AUTO) 0.2 K/uL (0.0-0.7); EOSINOPHILS % (AUTO) 1.4 % (0.0-6.0); HEMATOCRIT 24 % (39-51); LYMPHOCYTES # (AUTO) 0.5 K/uL (0.8-4.8); LYMPHOCYTES % (AUTO) 3.2 % (20.0-44.0); MEAN CORPUSCULAR HEMOGLOBIN 31 PG (26.0-33.0); MEAN CORPUSCULAR HGB CONC 33 g/dl (31.0-36.0); MEAN CORPUSCULAR VOLUME 95 fL (80-96); MONOCYTES # (AUTO) 0.7 K/uL (0.1-1.30); MONOCYTES % (AUTO) 5.1 % (2.0-12.0); NEUTROPHILS # (AUTO) 12.7 K/uL (1.8-8.9); NEUTROPHILS % (AUTO) 90.1 % (43.0-81.0); PLATELET COUNT (AUTO) 218 K/uL (150-450); RED BLOOD CELL COUNT(AUTO) 2.57 MIL/uL (4.5-6.0); RED CELL DISTRIBUTION WIDTH 19.7 % (11.5-15.0); WHITE BLOOD COUNT (AUTO) 14.1 K/uL (4.3-11.0)
[2024-11-09 06:56] LABS: ALBUMIN 1.8 g/dL (3.4-5.0); BILIRUBIN,TOTAL 0.4 mg/dL (0.2-1.0); CALCIUM, SERUM 7.4 mg/dL (8.5-10.1); CREATININE 2.7 mg/dL (0.6-1.3); MAGNESIUM 2.3 mg/dL (1.8-2.4); PHOSPHORUS 4.9 mg/dL (2.5-4.9); POTASSIUM 3.5 mmol/L (3.5-5.1); TOTAL PROTEIN, SERUM 7.1 g/dL (6.4-8.2)
[2024-11-09 08:00] VITALS: BP 152/65; TEMP 98.6; O2SAT 100
[2024-11-09] MEDS: METOPROLOL TARTRATE 25 MG TABLET PO SCH (08:59)
[2024-11-09 12:00] VITALS: BP 140/68; TEMP 98; O2SAT 100
[2024-11-09 14:12] LABS: *ANA ANTI-CENTROMERE B AB <0.2 AI (0.0-0.9); *ANA ANTI-DNA(DS) AB, QN <1 IU/mL (0-9); *ANA ANTI-JO-1 <0.2 AI (0.0-0.9); *ANA ANTICHROMATIN ANTIBODY 0.2 AI (0.0-0.9); *ANA RNP ANTIBODIES 0.2 AI (0.0-0.9); *ANA SJOGREN'S ANTI-SS-A <0.2 AI (0.0-0.9); *ANA SJOGREN'S ANTI-SS-B <0.2 AI (0.0-0.9); *ANAANTI-SCLERODERMA-70 AB <0.2 AI (0.0-0.9); *ANASMITH AB <0.2 AI (0.0-0.9)
[2024-11-09 16:00] VITALS: BP 188/96; TEMP 99.4; O2SAT 99
[2024-11-09 20:00] VITALS: BP 142/73; TEMP 99; O2SAT 100
[2024-11-09] MEDS: PANTOPRAZOLE 40 MG VIAL IV SCH (21:33)
[2024-11-10] VITALS (10 sets, daily range): BP systolic 102–175; BP diastolic 62–91; TEMP 97.5–99.1; O2SAT 99–100
[2024-11-10 04:08] LABS: HEPATITIS B CORE AB, TOTAL Positive (Negative)
[2024-11-10 07:54] LABS: BASOPHILS % (AUTO) 0.2 % (0.0-2.0); EOSINOPHILS # (AUTO) 0.5 K/uL (0.0-0.7); EOSINOPHILS % (AUTO) 3.6 % (0.0-6.0); HEMATOCRIT 21 % (39-51); LYMPHOCYTES # (AUTO) 0.9 K/uL (0.8-4.8); LYMPHOCYTES % (AUTO) 6.6 % (20.0-44.0); MEAN CORPUSCULAR HEMOGLOBIN 31 PG (26.0-33.0); MEAN CORPUSCULAR HGB CONC 33 g/dl (31.0-36.0); MEAN CORPUSCULAR VOLUME 94 fL (80-96); MONOCYTES # (AUTO) 0.9 K/uL (0.1-1.30); MONOCYTES % (AUTO) 6.8 % (2.0-12.0); NEUTROPHILS # (AUTO) 11.2 K/uL (1.8-8.9); NEUTROPHILS % (AUTO) 82.8 % (43.0-81.0); PLATELET COUNT (AUTO) 187 K/uL (150-450); RED BLOOD CELL COUNT(AUTO) 2.19 MIL/uL (4.5-6.0); RED CELL DISTRIBUTION WIDTH 19.9 % (11.5-15.0); WHITE BLOOD COUNT (AUTO) 13.6 K/uL (4.3-11.0)
[2024-11-10 08:01] LABS: HEMOGLOBIN 6.8 g/dL (13.5-17.5)
[2024-11-10 08:41] LABS: CALCIUM, SERUM 7.3 mg/dL (8.5-10.1); CREATININE 3.4 mg/dL (0.6-1.3); POTASSIUM 3.3 mmol/L (3.5-5.1)
[2024-11-10] MEDS: PANTOPRAZOLE 40 MG/PACK PACK GT SCH (08:54)
[2024-11-10 09:12] LABS: HEPATITIS B SURFACE AB Equivocal (.)
[2024-11-10 11:57] LABS: EOSINOPHILS % (MANUAL) 3 % (0-4); LYMPHOCYTES % (MANUAL) 10 % (16-48); MONOCYTES % (MANUAL) 1 % (0-11.0); NEUTROPHILS % (MANUAL) 86 (42-76); PLATELET ESTIMATE ADEQUATE
[2024-11-10 11:58] LABS: ANISOCYTOSIS 1+
[2024-11-10] MEDS: AMLODIPINE BESYLATE 10 MG TABLET PO SCH (13:12)
[2024-11-10] MEDS: POTASSIUM CHLORIDE 20 MEQ POWDER PACKET GT ONE ×2 (14:00→15:49)
[2024-11-10] MEDS ORDERED: PANTOPRAZOLE 40 MG/PACK PACK GT SCH (21:00)
[2024-11-11] VITALS: BP 134/64; TEMP 98.4; O2SAT 100
[2024-11-11 04:00] VITALS: BP 158/74; TEMP 97.7; O2SAT 100
[2024-11-11 08:25] LABS: BASOPHILS % (AUTO) 0.1 % (0.0-2.0); EOSINOPHILS # (AUTO) 0.6 K/uL (0.0-0.7); EOSINOPHILS % (AUTO) 5.4 % (0.0-6.0); HEMATOCRIT 25 % (39-51); HEMOGLOBIN 8.1 g/dL (13.5-17.5); LYMPHOCYTES # (AUTO) 0.8 K/uL (0.8-4.8); LYMPHOCYTES % (AUTO) 7.3 % (20.0-44.0); MEAN CORPUSCULAR HEMOGLOBIN 31 PG (26.0-33.0); MEAN CORPUSCULAR HGB CONC 33 g/dl (31.0-36.0); MEAN CORPUSCULAR VOLUME 94 fL (80-96); MONOCYTES # (AUTO) 0.8 K/uL (0.1-1.30); MONOCYTES % (AUTO) 6.8 % (2.0-12.0); NEUTROPHILS # (AUTO) 9.3 K/uL (1.8-8.9); NEUTROPHILS % (AUTO) 80.4 % (43.0-81.0); PLATELET COUNT (AUTO) 172 K/uL (150-450); RED BLOOD CELL COUNT(AUTO) 2.62 MIL/uL (4.5-6.0); RED CELL DISTRIBUTION WIDTH 18.5 % (11.5-15.0); WHITE BLOOD COUNT (AUTO) 11.5 K/uL (4.3-11.0)
[2024-11-11 08:54] LABS: CALCIUM, SERUM 7.4 mg/dL (8.5-10.1); CREATININE 3.1 mg/dL (0.6-1.3); POTASSIUM 3.5 mmol/L (3.5-5.1)
[2024-11-11 10:09] VITALS: BP 123/88; TEMP 98; O2SAT 100
[2024-11-11 12:00] VITALS: BP 123/77; TEMP 97.7; O2SAT 99
[2024-11-11 16:00] VITALS: BP 142/74; TEMP 98; O2SAT 99
[2024-11-11 20:00] VITALS: BP 150/77; TEMP 98.4; O2SAT 99
[2024-11-12] VITALS (10 sets, daily range): BP systolic 117–151; BP diastolic 61–84; TEMP 97.5–98.6; O2SAT 100
[2024-11-12 07:02] LABS: INR 1.2 (0.91-1.10); PROTHROMBIN TIME 12.6 SECS (9.2-11.1)
[2024-11-12 07:11] LABS: CALCIUM, SERUM 7.3 mg/dL (8.5-10.1); CREATININE 3.5 mg/dL (0.6-1.3); POTASSIUM 3.8 mmol/L (3.5-5.1)
[2024-11-12 07:13] LABS: BASOPHILS % (AUTO) 0.4 % (0.0-2.0); EOSINOPHILS # (AUTO) 0.6 K/uL (0.0-0.7); EOSINOPHILS % (AUTO) 5.7 % (0.0-6.0); LYMPHOCYTES % (AUTO) 9.8 % (20.0-44.0); MEAN CORPUSCULAR HEMOGLOBIN 31 PG (26.0-33.0); MEAN CORPUSCULAR HGB CONC 33 g/dl (31.0-36.0); MEAN CORPUSCULAR VOLUME 94 fL (80-96); MONOCYTES # (AUTO) 0.9 K/uL (0.1-1.30); MONOCYTES % (AUTO) 8.7 % (2.0-12.0); NEUTROPHILS # (AUTO) 7.5 K/uL (1.8-8.9); NEUTROPHILS % (AUTO) 75.4 % (43.0-81.0); PLATELET COUNT (AUTO) 164 K/uL (150-450); RED BLOOD CELL COUNT(AUTO) 2.08 MIL/uL (4.5-6.0)
[2024-11-12 07:19] LABS: HEMATOCRIT 19 % (39-51); HEMOGLOBIN 6.4 g/dL (13.5-17.5)
[2024-11-12] MEDS ORDERED: DEXTROSE 50%-WATER 50 ML DISP.SYRIN IV PRN (09:00)
[2024-11-12 09:23] LABS: ANISOCYTOSIS 1+; EOSINOPHILS % (MANUAL) 4 % (0-4); HYPOCHROMASIA 1+; LYMPHOCYTES % (MANUAL) 11 % (16-48); MONOCYTES % (MANUAL) 7 % (0-11.0); NEUTROPHILS % (MANUAL) 78 (42-76); PLATELET ESTIMATE ADEQUATE
[2024-11-12] MEDS: BLOOD SUGAR DIAGNOSTIC 1 EACH STRIP IN SCH (12:02)
[2024-11-12] MEDS: INSULIN REGULAR, HUMAN 100 UNIT/ML 3 ML VIAL SQ PRN (12:05)
[2024-11-12] MEDS: PEG 3350/NA SULF,BICARB,CL/KCL 4,000 ML BOTTLE PO ONE (14:45)
[2024-11-12] MEDS: IV 1/2NS 1000 ML 1,000 ML IV PRN (15:59)
[2024-11-12 19:17] LABS: HEMOGLOBIN 7.5 g/dL (13.5-17.5)
[2024-11-13] VITALS: BP 121/69; TEMP 97.5; O2SAT 100
[2024-11-13 04:02] VITALS: BP 126/68; TEMP 98.6; O2SAT 100
[2024-11-13 07:31] LABS: BASOPHILS % (AUTO) 0.4 % (0.0-2.0); EOSINOPHILS # (AUTO) 0.1 K/uL (0.0-0.7); EOSINOPHILS % (AUTO) 1.8 % (0.0-6.0); HEMATOCRIT 23 % (39-51); HEMOGLOBIN 7.4 g/dL (13.5-17.5); LYMPHOCYTES # (AUTO) 1.3 K/uL (0.8-4.8); LYMPHOCYTES % (AUTO) 16.2 % (20.0-44.0); MEAN CORPUSCULAR HEMOGLOBIN 31 PG (26.0-33.0); MEAN CORPUSCULAR HGB CONC 32 g/dl (31.0-36.0); MEAN CORPUSCULAR VOLUME 97 fL (80-96); MONOCYTES # (AUTO) 0.8 K/uL (0.1-1.30); MONOCYTES % (AUTO) 9.9 % (2.0-12.0); NEUTROPHILS # (AUTO) 5.9 K/uL (1.8-8.9); NEUTROPHILS % (AUTO) 71.7 % (43.0-81.0); PLATELET COUNT (AUTO) 143 K/uL (150-450); RED BLOOD CELL COUNT(AUTO) 2.37 MIL/uL (4.5-6.0); RED CELL DISTRIBUTION WIDTH 17.8 % (11.5-15.0); WHITE BLOOD COUNT (AUTO) 8.2 K/uL (4.3-11.0)
[2024-11-13 08:00] VITALS: BP 117/60; TEMP 98.1; O2SAT 100
[2024-11-13 08:19] LABS: CALCIUM, SERUM 7.2 mg/dL (8.5-10.1); CREATININE 2.5 mg/dL (0.6-1.3); POTASSIUM 3.6 mmol/L (3.5-5.1)
[2024-11-13 12:00] VITALS: BP 116/63; TEMP 98.1; O2SAT 100
[2024-11-13 16:00] VITALS: BP 123/62; TEMP 98.4; O2SAT 100
[2024-11-13 20:00] VITALS: BP 109/54; TEMP 98.2; O2SAT 99
[2024-11-14] VITALS (15 sets, daily range): BP systolic 95–163; BP diastolic 48–80; TEMP 97.5–98.2; O2SAT 99–100
[2024-11-14 08:23] LABS: CALCIUM, SERUM 6.8 mg/dL (8.5-10.1); CREATININE 3.1 mg/dL (0.6-1.3); POTASSIUM 3.5 mmol/L (3.5-5.1)
[2024-11-14 08:24] LABS: BASOPHILS % (AUTO) 0.4 % (0.0-2.0); EOSINOPHILS # (AUTO) 0.5 K/uL (0.0-0.7); EOSINOPHILS % (AUTO) 5.6 % (0.0-6.0); LYMPHOCYTES # (AUTO) 1.1 K/uL (0.8-4.8); LYMPHOCYTES % (AUTO) 12.1 % (20.0-44.0); MEAN CORPUSCULAR HEMOGLOBIN 31 PG (26.0-33.0); MEAN CORPUSCULAR HGB CONC 33 g/dl (31.0-36.0); MEAN CORPUSCULAR VOLUME 93 fL (80-96); MONOCYTES # (AUTO) 0.8 K/uL (0.1-1.30); MONOCYTES % (AUTO) 8.3 % (2.0-12.0); NEUTROPHILS % (AUTO) 73.6 % (43.0-81.0); PLATELET COUNT (AUTO) 176 K/uL (150-450); RED CELL DISTRIBUTION WIDTH 17.1 % (11.5-15.0); WHITE BLOOD COUNT (AUTO) 9.5 K/uL (4.3-11.0)
[2024-11-14 08:45] LABS: RED BLOOD CELL COUNT(AUTO) 1.93 MIL/uL (4.5-6.0)
[2024-11-14 08:46] LABS: HEMATOCRIT 18 % (39-51)
[2024-11-14 10:45] LABS: ANISOCYTOSIS 1+; EOSINOPHILS % (MANUAL) 5 % (0-4); HYPOCHROMASIA 1+; LYMPHOCYTES % (MANUAL) 13 % (16-48); MONOCYTES % (MANUAL) 3 % (0-11.0); NEUTROPHILS % (MANUAL) 79 (42-76); PLATELET ESTIMATE ADEQUATE
[2024-11-14 10:46] LABS: STOMATOCYTES 1+
[2024-11-14 18:06] LABS: HEMOGLOBIN 7.8 g/dL (13.5-17.5)
[2024-11-15] VITALS: BP 119/52; TEMP 97.7; O2SAT 100
[2024-11-15 04:00] VITALS: BP 132/69; TEMP 97.9; O2SAT 100
[2024-11-15 07:31] LABS: BASOPHILS # (AUTO) 0.1 K/uL (0.0-0.2); BASOPHILS % (AUTO) 0.6 % (0.0-2.0); EOSINOPHILS # (AUTO) 0.4 K/uL (0.0-0.7); EOSINOPHILS % (AUTO) 4.5 % (0.0-6.0); HEMATOCRIT 27 % (39-51); HEMOGLOBIN 8.9 g/dL (13.5-17.5); LYMPHOCYTES # (AUTO) 0.8 K/uL (0.8-4.8); LYMPHOCYTES % (AUTO) 9.1 % (20.0-44.0); MEAN CORPUSCULAR HEMOGLOBIN 30 PG (26.0-33.0); MEAN CORPUSCULAR HGB CONC 34 g/dl (31.0-36.0); MEAN CORPUSCULAR VOLUME 91 fL (80-96); MONOCYTES # (AUTO) 0.7 K/uL (0.1-1.30); NEUTROPHILS # (AUTO) 7.1 K/uL (1.8-8.9); NEUTROPHILS % (AUTO) 77.8 % (43.0-81.0); PLATELET COUNT (AUTO) 176 K/uL (150-450); RED BLOOD CELL COUNT(AUTO) 2.93 MIL/uL (4.5-6.0); RED CELL DISTRIBUTION WIDTH 17.2 % (11.5-15.0); WHITE BLOOD COUNT (AUTO) 9.2 K/uL (4.3-11.0)
[2024-11-15 07:54] LABS: CALCIUM, SERUM 6.9 mg/dL (8.5-10.1); CREATININE 3.4 mg/dL (0.6-1.3); POTASSIUM 3.4 mmol/L (3.5-5.1)
[2024-11-15 08:00] VITALS: BP 121/64; TEMP 97.6; O2SAT 100
[2024-11-15] MEDS: POTASSIUM CHLORIDE 20 MEQ POWDER PACKET GT SCH (09:37)
[2024-11-15 12:00] VITALS: BP 111/62; TEMP 96.6; O2SAT 100
[2024-11-15 16:00] VITALS: BP 145/63; TEMP 97; O2SAT 100
[2024-11-15 20:00] VITALS: BP 117/62; TEMP 99; O2SAT 100
[2024-11-16] VITALS: BP 113/59; TEMP 99.3; O2SAT 100
[2024-11-16 04:00] VITALS: BP 124/61; TEMP 99.1; O2SAT 100
[2024-11-16 08:00] VITALS: BP 149/62; TEMP 98.4; O2SAT 100
[2024-11-16] MEDS ORDERED: GLUCERNA 1.2 1,000 ML BOTTLE NG PRN (09:57)
[2024-11-16 12:00] VITALS: BP 109/64; TEMP 98.2; O2SAT 100
[2024-11-16 16:00] VITALS: BP 111/55; TEMP 98.4; O2SAT 99
[2024-11-16 20:00] VITALS: BP 125/59; TEMP 100.8; O2SAT 99
[2024-11-17] VITALS (11 sets, daily range): BP systolic 107–144; BP diastolic 58–76; TEMP 97.4–98.8; O2SAT 97–100
[2024-11-17 16:03] LABS: CALCIUM, SERUM 7.1 mg/dL (8.5-10.1); CREATININE 3.6 mg/dL (0.6-1.3); POTASSIUM 3.5 mmol/L (3.5-5.1)
[2024-11-17 16:06] LABS: BASOPHILS % (AUTO) 0.3 % (0.0-2.0); EOSINOPHILS # (AUTO) 0.7 K/uL (0.0-0.7); EOSINOPHILS % (AUTO) 10.9 % (0.0-6.0); HEMATOCRIT 21 % (39-51); LYMPHOCYTES # (AUTO) 0.7 K/uL (0.8-4.8); MEAN CORPUSCULAR HEMOGLOBIN 30 PG (26.0-33.0); MEAN CORPUSCULAR HGB CONC 33 g/dl (31.0-36.0); MEAN CORPUSCULAR VOLUME 89 fL (80-96); MONOCYTES # (AUTO) 0.5 K/uL (0.1-1.30); MONOCYTES % (AUTO) 7.4 % (2.0-12.0); NEUTROPHILS # (AUTO) 4.7 K/uL (1.8-8.9); NEUTROPHILS % (AUTO) 70.4 % (43.0-81.0); PLATELET COUNT (AUTO) 169 K/uL (150-450); RED BLOOD CELL COUNT(AUTO) 2.31 MIL/uL (4.5-6.0); RED CELL DISTRIBUTION WIDTH 16.5 % (11.5-15.0); WHITE BLOOD COUNT (AUTO) 6.6 K/uL (4.3-11.0)
[2024-11-17 16:29] LABS: HEMOGLOBIN 6.9 g/dL (13.5-17.5)
[2024-11-17 20:22] LABS: EOSINOPHILS % (MANUAL) 8 % (0-4); LYMPHOCYTES % (MANUAL) 13 % (16-48); MONOCYTES % (MANUAL) 4 % (0-11.0); NEUTROPHILS % (MANUAL) 75 (42-76); PLATELET ESTIMATE ADEQUATE
[2024-11-17 20:23] LABS: ANISOCYTOSIS 1+; TEAR DROP CELLS 1+
[2024-11-18] VITALS (8 sets, daily range): BP systolic 118–140; BP diastolic 55–80; TEMP 97.7–100.2; O2SAT 99–100
[2024-11-19] VITALS: BP 120/58; TEMP 98.8; O2SAT 100
[2024-11-19 04:00] VITALS: BP 150/67; TEMP 99; O2SAT 100
[2024-11-19 08:00] VITALS: BP 121/60; TEMP 98.4; O2SAT 100
[2024-11-19 12:00] VITALS: BP 152/71; TEMP 98.2; O2SAT 100
[2024-11-19 16:00] VITALS: BP 123/60; TEMP 99; O2SAT 100
[2024-11-19 20:00] VITALS: BP 129/60; TEMP 98.2; O2SAT 100
[2024-11-20] VITALS: BP 124/67; TEMP 98.4; O2SAT 100
[2024-11-20 04:00] VITALS: BP 137/64; TEMP 98.4; O2SAT 100
[2024-11-20 08:00] VITALS: BP 107/58; TEMP 97.6; O2SAT 100
[2024-11-20 12:00] VITALS: BP 145/91; TEMP 97.9; O2SAT 100
[2024-11-20 16:00] VITALS: BP 138/62; TEMP 98; O2SAT 100
[2024-11-20 20:00] VITALS: BP 132/80; TEMP 97.5; O2SAT 100
[2024-11-21] VITALS: BP 141/67; TEMP 98.2; O2SAT 100
[2024-11-21 04:00] VITALS: BP 132/70; TEMP 97.5; O2SAT 100
[2024-11-21 08:00] VITALS: BP 128/69; TEMP 97.9; O2SAT 100
[2024-11-21 12:00] VITALS: BP 122/66; TEMP 98; O2SAT 100
[2024-11-21 12:38] LABS: BASOPHILS % (AUTO) 0.3 % (0.0-2.0); EOSINOPHILS # (AUTO) 0.7 K/uL (0.0-0.7); EOSINOPHILS % (AUTO) 11.7 % (0.0-6.0); HEMATOCRIT 24 % (39-51); HEMOGLOBIN 8.2 g/dL (13.5-17.5); LYMPHOCYTES # (AUTO) 0.8 K/uL (0.8-4.8); LYMPHOCYTES % (AUTO) 11.9 % (20.0-44.0); MEAN CORPUSCULAR HEMOGLOBIN 31 PG (26.0-33.0); MEAN CORPUSCULAR HGB CONC 35 g/dl (31.0-36.0); MEAN CORPUSCULAR VOLUME 89 fL (80-96); MONOCYTES # (AUTO) 0.5 K/uL (0.1-1.30); MONOCYTES % (AUTO) 7.7 % (2.0-12.0); NEUTROPHILS # (AUTO) 4.3 K/uL (1.8-8.9); NEUTROPHILS % (AUTO) 68.4 % (43.0-81.0); PLATELET COUNT (AUTO) 206 K/uL (150-450); RED BLOOD CELL COUNT(AUTO) 2.64 MIL/uL (4.5-6.0); WHITE BLOOD COUNT (AUTO) 6.3 K/uL (4.3-11.0)
[2024-11-21 12:55] LABS: CALCIUM, SERUM 8.5 mg/dL (8.5-10.1); CREATININE 3.2 mg/dL (0.6-1.3); POTASSIUM 3.3 mmol/L (3.5-5.1)
[2024-11-21 16:00] VITALS: BP 129/60; TEMP 98.2; O2SAT 100
[2024-11-21 20:00] VITALS: BP 140/68; TEMP 97.3; O2SAT 100
[2024-11-22] VITALS: BP 146/68; TEMP 98.7; O2SAT 100
[2024-11-22 04:00] VITALS: BP 146/63; TEMP 98.4; O2SAT 100
[2024-11-22 08:00] VITALS: BP 101/72; TEMP 98.4; O2SAT 100
[2024-11-22 12:00] VITALS: BP 140/60; TEMP 98.4; O2SAT 98
[2024-11-22 16:00] VITALS: BP 133/60; TEMP 98.8; O2SAT 100
[2024-11-22 22:00] VITALS: BP 147/71; TEMP 98.1; O2SAT 100
[2024-11-23] VITALS: BP 155/65; TEMP 98.4; O2SAT 100
[2024-11-23 04:00] VITALS: BP 137/67; TEMP 98.2; O2SAT 100
[2024-11-23 09:00] VITALS: BP 131/60; TEMP 97.9; O2SAT 98
[2024-11-23 12:00] VITALS: BP 118/62; TEMP 98.1; O2SAT 100
[2024-11-23 16:00] VITALS: BP 129/63; TEMP 98.2; O2SAT 100
[2024-11-23 20:00] VITALS: BP 155/65; TEMP 99.1; O2SAT 100
[2024-11-24] VITALS: BP 149/65; TEMP 99; O2SAT 100
[2024-11-24 04:00] VITALS: BP 155/64; TEMP 99; O2SAT 100
[2024-11-24 08:00] VITALS: BP 124/67; TEMP 98; O2SAT 100
[2024-11-24 12:00] VITALS: BP 122/57; TEMP 98.1; O2SAT 100
[2024-11-24 16:00] VITALS: BP 126/64; TEMP 98.1; O2SAT 96
[2024-11-24 20:00] VITALS: BP 150/78; TEMP 97.7; O2SAT 98
[2024-11-25] VITALS: BP 136/65; TEMP 97.7; O2SAT 98
[2024-11-25 04:00] VITALS: BP 145/77; TEMP 97.5; O2SAT 100
[2024-11-25 08:00] VITALS: BP 139/71; TEMP 97.7; O2SAT 100
[2024-11-25 12:00] VITALS: BP 124/68; TEMP 97.5; O2SAT 100
[2024-11-25 16:00] VITALS: BP 124/65; TEMP 98.2; O2SAT 100
[2024-11-25 20:00] VITALS: BP 130/79; TEMP 98.6; O2SAT 100
[2024-11-26] VITALS: BP 150/86; TEMP 98.3; O2SAT 100
[2024-11-26 04:00] VITALS: BP 133/62; TEMP 98.8; O2SAT 100
[2024-11-26 08:00] VITALS: BP 132/58; TEMP 98.4; O2SAT 100
[2024-11-26 12:00] VITALS: BP 131/62; TEMP 98.4; O2SAT 100
== END 2024-11-26 16:50 | DRG 853 ==
LOC: ER 10:04 → TELE1 13:18
PROVIDERS: ADMIT Internal Medicine; ATTEND Internal Medicine
PROC: 5A1955Z Respiratory Ventilation, Greater than 96 Consecutive Hours (ICD-10-PCS; principal; 2024-11-01)
PROC: 30233N1 Transfusion of Nonautologous Red Blood Cells into Peripheral Vein, Percutaneous Approach (ICD-10-PCS; 2024-11-01)
PROC: 06HY33Z Insertion of Infusion Device into Lower Vein, Percutaneous Approach (ICD-10-PCS; 2024-11-06)
PROC: 5A1D70Z Performance of Urinary Filtration, Intermittent, Less than 6 Hours Per Day (ICD-10-PCS; 2024-11-06)
PROC: 0JB70ZZ Excision of Back Subcutaneous Tissue and Fascia, Open Approach (ICD-10-PCS; 2024-11-16)
PROC: 0JB70ZZ Excision of Back Subcutaneous Tissue and Fascia, Open Approach (ICD-10-PCS; 2024-11-23)
DX: A41.9 Sepsis, unspecified organism (principal); N17.0 Acute kidney failure with tubular necrosis; L89.153 Pressure ulcer of sacral region, stage 3; R65.21 Severe sepsis with septic shock; J69.0 Pneumonitis due to inhalation of food and vomit; I50.33 Acute on chronic diastolic (congestive) heart failure; J96.10 Chronic respiratory failure, unspecified whether with hypoxia or hypercapnia; E87.1 Hypo-osmolality and hyponatremia; I13.0 Hypertensive heart and chronic kidney disease with heart failure and stage 1 through stage 4 chronic kidney disease, or unspecified chronic kidney disease; Z99.11 Dependence on respirator [ventilator] status; G93.49 Other encephalopathy; F33.1 Major depressive disorder, recurrent, moderate; E46 Unspecified protein-calorie malnutrition; N18.4 Chronic kidney disease, stage 4 (severe); K92.2 Gastrointestinal hemorrhage, unspecified; E83.9 Disorder of mineral metabolism, unspecified; Z66 Do not resuscitate; Z79.4 Long term (current) use of insulin; Z20.822 Contact with and (suspected) exposure to COVID-19; D64.9 Anemia, unspecified; E11.22 Type 2 diabetes mellitus with diabetic chronic kidney disease; E86.0 Dehydration; Z93.1 Gastrostomy status; R13.10 Dysphagia, unspecified; I95.9 Hypotension, unspecified; N40.0 Benign prostatic hyperplasia without lower urinary tract symptoms; E88.09 Other disorders of plasma-protein metabolism, not elsewhere classified; F03.90 Unspecified dementia, unspecified severity, without behavioral disturbance, psychotic disturbance, mood disturbance, and anxiety; Z93.0 Tracheostomy status; E78.5 Hyperlipidemia, unspecified; Z86.73 Personal history of transient ischemic attack (TIA), and cerebral infarction without residual deficits; L89.529 Pressure ulcer of left ankle, unspecified stage; E87.5 Hyperkalemia
CPT/HCPCS: 31720; 36415; 71045-TC; 71250-TC; 76770-TC; 80048-TC; 80053-TC; 80076-TC; 81001; 82272-TC; 82550-TC; 82570-TC; 82962-TC; 83605-TC; 83735-TC; 83880; 83970; 84100-TC; 84155; 84165; 84300-TC; 84484-TC; 85025-TC; 85027-TC; 85610-TC; 85652-TC; 85730-TC; 86225; 86235; 86704; 86706; 86803; 86850-TC; 87040-TC; 87081-TC; 87340; 90935-TC; 93307-TC; 94002-TC; 94003-TC; 94760-TC; 94761-TC; 94762-TC; 94799-TC; A4223; A4623; A6253; A6403; G0378; J1815; J1940; J2470; J2543; J3370; J3490; J7030; J7040; J7050; J7060; P9016

== ENCOUNTER 2025-03-02 05:36 | Inpatient (IN) | payer OTHER ==
[2025-03-02] VITALS (21 sets, daily range): BP systolic 112–141; BP diastolic 57–85; TEMP 96.5–97.6; O2SAT 97–100
[~2025-03-02] VITALS: Ht 175.3 cm; Wt 88.5 kg
[~2025-03-02 05:36] MED LIST changes: +AMIN30LI66 GT; -AMOX-430 PO; -ASCO500L2 GT; +ASCO500T10 GT; -FERR220S2 GT; +FERR325T24 GT; +LOSA25TA27 GT; -LOSA25TA27 PO; +PERM60CR4 TP; -SUCR1TAB31 PO; +ZINC56.713 TP
[2025-03-02] MEDS: IV NS 0.9% 1,000 ML BAG IV ONE (06:14)
[2025-03-02] MEDS: PANTOPRAZOLE 40 MG VIAL IV ONE (06:28)
[2025-03-02 06:53] LABS: CALCIUM, SERUM 8.1 mg/dL (8.5-10.1); CREATININE 2.6 mg/dL (0.6-1.3); POTASSIUM 5.4 mmol/L (3.5-5.1)
[2025-03-02 06:55] LABS: BASOPHILS % (AUTO) 0.3 % (0.0-2.0); EOSINOPHILS # (AUTO) 0.4 K/uL (0.0-0.7); EOSINOPHILS % (AUTO) 3.7 % (0.0-6.0); HEMATOCRIT 22 % (39-51); LYMPHOCYTES # (AUTO) 0.6 K/uL (0.8-4.8); LYMPHOCYTES % (AUTO) 5.2 % (20.0-44.0); MEAN CORPUSCULAR HEMOGLOBIN 31 PG (26.0-33.0); MEAN CORPUSCULAR HGB CONC 31 g/dl (31.0-36.0); MEAN CORPUSCULAR VOLUME 100 fL (80-96); MONOCYTES # (AUTO) 0.7 K/uL (0.1-1.30); MONOCYTES % (AUTO) 5.6 % (2.0-12.0); NEUTROPHILS % (AUTO) 85.2 % (43.0-81.0); PLATELET COUNT (AUTO) 263 K/uL (150-450); RED BLOOD CELL COUNT(AUTO) 2.19 MIL/uL (4.5-6.0); RED CELL DISTRIBUTION WIDTH 15.2 % (11.5-15.0); WHITE BLOOD COUNT (AUTO) 11.8 K/uL (4.3-11.0)
[2025-03-02 06:56] LABS: HEMOGLOBIN 6.9 g/dL (13.5-17.5)
[2025-03-02 06:59] LABS: ALBUMIN 1.7 g/dL (3.4-5.0); BILIRUBIN,DIRECT 0.3 mg/dL (0.0-0.2); BILIRUBIN,TOTAL 0.5 mg/dL (0.2-1.0); INR 1.3 (0.91-1.10); PARTIAL THROMBOPLASTIN TIME 35.8 SEC (24.3-34.3); PROTHROMBIN TIME 13.5 SECS (9.2-11.1); TOTAL PROTEIN, SERUM 7.3 g/dL (6.4-8.2)
[2025-03-02] MEDS ORDERED: CICL60SU2 TP (08:36)
[2025-03-02] MEDS ORDERED: HYDR-4077 GT (08:36)
[2025-03-02] MEDS ORDERED: INSU100V3 SQ (08:36)
[2025-03-02] MEDS ORDERED: EPOE1VIA12 SQ (08:36)
[2025-03-02] MEDS ORDERED: MULT-594 GT (08:36)
[2025-03-02] MEDS ORDERED: CARV3.122 GT (08:36)
[2025-03-02] MEDS ORDERED: SEVE2.4P3 GT (08:36)
[2025-03-02] MEDS ORDERED: FLUO15CR2 TP (08:36)
[2025-03-02] MEDS ORDERED: CLON0.1T GT (08:36)
[2025-03-02] MEDS ORDERED: HYDR453.3 TP (08:36)
[2025-03-02] MEDS ORDERED: ACETAMINOPHEN ES 500 MG TABLET GT PRN (09:00)
[2025-03-02] MEDS ORDERED: BISACODYL SUPP (10 MG) 10 MG/SUPP.RECT SUPP.RECT RC PRN (09:00)
[2025-03-02] MEDS ORDERED: MAGNESIUM HYDROXIDE 30 ML UDC GT PRN (09:00)
[2025-03-02] MEDS ORDERED: NA PHOS,M-B/NA PHOS,DI-BA 1 EA ENEMA RC PRN (09:00)
[2025-03-02] MEDS ORDERED: CICLOPIROX OLAMINE TP SCH (09:00)
[2025-03-02 09:22] LABS: ANISOCYTOSIS 1+; LYMPHOCYTES % (MANUAL) 6 % (16-48); MONOCYTES % (MANUAL) 4 % (0-11.0); NEUTROPHILS % (MANUAL) 89 (42-76); PLATELET ESTIMATE ADEQUATE; STOMATOCYTES 1+
[2025-03-02] MEDS ORDERED: DEXTROSE 50%-WATER 50 ML DISP.SYRIN IV PRN (09:30)
[2025-03-02] MEDS ORDERED: ALBUTEROL FS 2.5 MG/3 ML VIAL.NEB NEB PRN (10:00)
[2025-03-02] MEDS ORDERED: IPRATROPIUM NEB FS 0.5 MG/2.5 ML AMPUL.NEB NEB PRN (10:00)
[2025-03-02] MEDS: hydrALAZINE HCL 50 MG TABLET GT SCH (10:56)
[2025-03-02] MEDS: CARVEDILOL 3.125 MG TABLET GT SCH (10:57)
[2025-03-02] MEDS: CHLORHEXIDINE GLUCONATE 15 ML UDC MM SCH (10:58)
[2025-03-02] MEDS: PANTOPRAZOLE 40 MG VIAL IV SCH (10:59)
[2025-03-02] MEDS: HYDROCORTISONE 2.5% CREAM 28.4 GM TUBE TP SCH (11:00)
[2025-03-02] MEDS: BLOOD SUGAR DIAGNOSTIC 1 EACH STRIP IN SCH (12:32)
[2025-03-02] MEDS: SEVELAMER CARBONATE 800 MG POWD.PACK GT SCH (12:35)
[2025-03-02] MEDS: IPRATROPIUM NEB FS 0.5 MG/2.5 ML AMPUL.NEB NEB SCH (13:43)
[2025-03-02] MEDS: ALBUTEROL FS 2.5 MG/3 ML VIAL.NEB NEB SCH (13:43)
[2025-03-02] MEDS: IV NS 0.9% 1,000 ML IV PRN (16:53)
[2025-03-02] MEDS: FLUOCINONIDE 0.05% CREAM 15 GM TUBE TP SCH (20:17)
[2025-03-02] MEDS: ATORVASTATIN 40 MG TABLET GT SCH (21:22)
[2025-03-02] MEDS: INSULIN REGULAR, HUMAN 100 UNIT/ML 3 ML VIAL SQ PRN (23:37)
[2025-03-03] VITALS (18 sets, daily range): BP systolic 115–146; BP diastolic 60–77; TEMP 96.6–97.2; O2SAT 95–100
[2025-03-03 04:39] LABS: EOSINOPHILS # (AUTO) 0.4 K/uL (0.0-0.7); EOSINOPHILS % (AUTO) 2.9 % (0.0-6.0); HEMATOCRIT 25 % (39-51); HEMOGLOBIN 8.1 g/dL (13.5-17.5); LYMPHOCYTES # (AUTO) 0.4 K/uL (0.8-4.8); LYMPHOCYTES % (AUTO) 3.5 % (20.0-44.0); MEAN CORPUSCULAR HEMOGLOBIN 31 PG (26.0-33.0); MEAN CORPUSCULAR HGB CONC 32 g/dl (31.0-36.0); MEAN CORPUSCULAR VOLUME 96 fL (80-96); MONOCYTES # (AUTO) 0.6 K/uL (0.1-1.30); MONOCYTES % (AUTO) 5.1 % (2.0-12.0); NEUTROPHILS # (AUTO) 11.2 K/uL (1.8-8.9); NEUTROPHILS % (AUTO) 88.5 % (43.0-81.0); PLATELET COUNT (AUTO) 287 K/uL (150-450); RED CELL DISTRIBUTION WIDTH 17.5 % (11.5-15.0); WHITE BLOOD COUNT (AUTO) 12.7 K/uL (4.3-11.0)
[2025-03-03 04:52] LABS: ALBUMIN 1.6 g/dL (3.4-5.0); BILIRUBIN,TOTAL 0.6 mg/dL (0.2-1.0); CALCIUM, SERUM 7.9 mg/dL (8.5-10.1); CREATININE 2.5 mg/dL (0.6-1.3); MAGNESIUM 2.6 mg/dL (1.8-2.4); PHOSPHORUS 4.6 mg/dL (2.5-4.9); POTASSIUM 5.5 mmol/L (3.5-5.1); TOTAL PROTEIN, SERUM 7.2 g/dL (6.4-8.2)
[2025-03-03] MEDS: MULTIVITAMINS,THERAGRAN 1 UDTAB TABLET GT SCH (09:11)
[2025-03-03] MEDS: THERAHONEY GEL 1.5 OZ TUBE TP SCH ×2 (09:13→12:23)
[2025-03-04] VITALS: BP 118/74; TEMP 97.2; O2SAT 100
[2025-03-04 04:00] VITALS: BP 153/78; TEMP 97.4; O2SAT 100
[2025-03-04 08:00] VITALS: BP 163/73; TEMP 98.4; O2SAT 100
[2025-03-04] MEDS ORDERED: FERR220E2 PO (09:20)
[2025-03-04 10:04] LABS: EOSINOPHILS # (AUTO) 0.3 K/uL (0.0-0.7); EOSINOPHILS % (AUTO) 2.1 % (0.0-6.0); HEMATOCRIT 25 % (39-51); HEMOGLOBIN 7.8 g/dL (13.5-17.5); LYMPHOCYTES # (AUTO) 0.5 K/uL (0.8-4.8); MEAN CORPUSCULAR HEMOGLOBIN 31 PG (26.0-33.0); MEAN CORPUSCULAR HGB CONC 32 g/dl (31.0-36.0); MEAN CORPUSCULAR VOLUME 96 fL (80-96); MONOCYTES # (AUTO) 0.6 K/uL (0.1-1.30); MONOCYTES % (AUTO) 4.6 % (2.0-12.0); NEUTROPHILS # (AUTO) 10.6 K/uL (1.8-8.9); NEUTROPHILS % (AUTO) 89.3 % (43.0-81.0); PLATELET COUNT (AUTO) 273 K/uL (150-450); RED BLOOD CELL COUNT(AUTO) 2.57 MIL/uL (4.5-6.0); RED CELL DISTRIBUTION WIDTH 17.8 % (11.5-15.0); WHITE BLOOD COUNT (AUTO) 11.9 K/uL (4.3-11.0)
[2025-03-04 10:34] LABS: CALCIUM, SERUM 8.2 mg/dL (8.5-10.1); CREATININE 2.3 mg/dL (0.6-1.3); POTASSIUM 5.3 mmol/L (3.5-5.1)
[2025-03-04 12:00] VITALS: BP 128/69; TEMP 97.7; O2SAT 100
[2025-03-04] MEDS: NEPRO 1,000 ML BOTTLE GT PRN (12:01)
[2025-03-04 16:00] VITALS: BP 131/65; TEMP 97.9; O2SAT 100
[2025-03-04 20:00] VITALS: BP 122/61; TEMP 97.3; O2SAT 100
[2025-03-05] VITALS: BP 126/72; TEMP 97.3; O2SAT 100
[2025-03-05 04:00] VITALS: BP 124/78; TEMP 97.5; O2SAT 100
[2025-03-05 08:10] VITALS: BP 180/72; TEMP 98.1; O2SAT 100
[2025-03-05] MEDS: PANTOPRAZOLE 40 MG/PACK PACK GT SCH (08:41)
[2025-03-05 09:53] LABS: BASOPHILS % (AUTO) 0.2 % (0.0-2.0); EOSINOPHILS # (AUTO) 0.2 K/uL (0.0-0.7); HEMATOCRIT 26 % (39-51); HEMOGLOBIN 8.3 g/dL (13.5-17.5); LYMPHOCYTES # (AUTO) 0.5 K/uL (0.8-4.8); LYMPHOCYTES % (AUTO) 3.8 % (20.0-44.0); MEAN CORPUSCULAR HEMOGLOBIN 31 PG (26.0-33.0); MEAN CORPUSCULAR HGB CONC 33 g/dl (31.0-36.0); MEAN CORPUSCULAR VOLUME 97 fL (80-96); MONOCYTES # (AUTO) 0.6 K/uL (0.1-1.30); MONOCYTES % (AUTO) 5.3 % (2.0-12.0); NEUTROPHILS # (AUTO) 10.9 K/uL (1.8-8.9); NEUTROPHILS % (AUTO) 88.7 % (43.0-81.0); PLATELET COUNT (AUTO) 300 K/uL (150-450); RED BLOOD CELL COUNT(AUTO) 2.64 MIL/uL (4.5-6.0); RED CELL DISTRIBUTION WIDTH 17.8 % (11.5-15.0); WHITE BLOOD COUNT (AUTO) 12.3 K/uL (4.3-11.0)
[2025-03-05 10:09] LABS: POTASSIUM 5.3 mmol/L (3.5-5.1)
[2025-03-05 12:10] VITALS: BP 150/69; TEMP 97.9; O2SAT 100
[2025-03-05] MEDS: SODIUM POLYSTYRENE SULFONATE 15 G/60 ML BOTTLE GT ONE (15:54)
[2025-03-05 16:10] VITALS: BP 152/80; TEMP 98.1; O2SAT 100
[2025-03-05 20:00] VITALS: BP 141/90; TEMP 97.2; O2SAT 100
[2025-03-05] MEDS: CLONIDINE HCL 0.1 MG TABLET GT PRN (23:42)
[2025-03-06] VITALS (9 sets, daily range): BP systolic 114–170; BP diastolic 77–89; TEMP 96–97.7; O2SAT 100
[2025-03-06 06:33] LABS: BASOPHILS % (AUTO) 0.1 % (0.0-2.0); CALCIUM, SERUM 8.1 mg/dL (8.5-10.1); CREATININE 1.8 mg/dL (0.6-1.3); EOSINOPHILS # (AUTO) 0.2 K/uL (0.0-0.7); EOSINOPHILS % (AUTO) 1.9 % (0.0-6.0); HEMATOCRIT 25 % (39-51); HEMOGLOBIN 8.1 g/dL (13.5-17.5); LYMPHOCYTES # (AUTO) 0.5 K/uL (0.8-4.8); LYMPHOCYTES % (AUTO) 4.5 % (20.0-44.0); MEAN CORPUSCULAR HEMOGLOBIN 32 PG (26.0-33.0); MEAN CORPUSCULAR HGB CONC 33 g/dl (31.0-36.0); MEAN CORPUSCULAR VOLUME 96 fL (80-96); MONOCYTES # (AUTO) 0.6 K/uL (0.1-1.30); MONOCYTES % (AUTO) 5.2 % (2.0-12.0); NEUTROPHILS # (AUTO) 9.5 K/uL (1.8-8.9); NEUTROPHILS % (AUTO) 88.3 % (43.0-81.0); PLATELET COUNT (AUTO) 299 K/uL (150-450); POTASSIUM 5.6 mmol/L (3.5-5.1); RED BLOOD CELL COUNT(AUTO) 2.56 MIL/uL (4.5-6.0); RED CELL DISTRIBUTION WIDTH 17.5 % (11.5-15.0); WHITE BLOOD COUNT (AUTO) 10.8 K/uL (4.3-11.0)
[2025-03-06] MEDS: SODIUM ZIRCONIUM CYCLOSILICATE 5 GM POWD.PACK PEG ONE (10:12)
[2025-03-06] MEDS: SODIUM ZIRCONIUM CYCLOSILICATE 10 GM POWD.PACK GT SCH (10:18)
[2025-03-07] VITALS (7 sets, daily range): BP systolic 138–157; BP diastolic 77–90; TEMP 97.5–98.9; O2SAT 98–100
[2025-03-07 07:11] LABS: BASOPHILS % (AUTO) 0.1 % (0.0-2.0); EOSINOPHILS # (AUTO) 0.2 K/uL (0.0-0.7); EOSINOPHILS % (AUTO) 1.4 % (0.0-6.0); HEMATOCRIT 26 % (39-51); HEMOGLOBIN 8.4 g/dL (13.5-17.5); LYMPHOCYTES # (AUTO) 0.5 K/uL (0.8-4.8); LYMPHOCYTES % (AUTO) 3.9 % (20.0-44.0); MEAN CORPUSCULAR HEMOGLOBIN 32 PG (26.0-33.0); MEAN CORPUSCULAR HGB CONC 33 g/dl (31.0-36.0); MEAN CORPUSCULAR VOLUME 97 fL (80-96); MONOCYTES # (AUTO) 0.7 K/uL (0.1-1.30); MONOCYTES % (AUTO) 5.2 % (2.0-12.0); NEUTROPHILS # (AUTO) 11.6 K/uL (1.8-8.9); NEUTROPHILS % (AUTO) 89.4 % (43.0-81.0); PLATELET COUNT (AUTO) 287 K/uL (150-450); RED BLOOD CELL COUNT(AUTO) 2.68 MIL/uL (4.5-6.0); RED CELL DISTRIBUTION WIDTH 17.4 % (11.5-15.0); WHITE BLOOD COUNT (AUTO) 12.9 K/uL (4.3-11.0)
[2025-03-07 10:41] LABS: ALANINE AMINOTRANSFERASE 15 U/L (12-78); ALBUMIN 1.6 g/dL (3.4-5.0); ALKALINE PHOSPHATASE 265 U/L (46-116); ASPARTATE AMINOTRANSFERASE 19 U/L (15-37); BILIRUBIN,TOTAL 0.3 mg/dL (0.2-1.0); CALCIUM, SERUM 8.5 mg/dL (8.5-10.1); CARBON DIOXIDE 28 mmol/L (21-32); CHLORIDE 98 mmol/L (98-107); CREATININE 1.7 mg/dL (0.6-1.3); GLUCOSE 186 mg/dL (74-106); MAGNESIUM 2.5 mg/dL (1.8-2.4); PHOSPHORUS 2.6 mg/dL (2.5-4.9); POTASSIUM 4.7 mmol/L (3.5-5.1); SODIUM SERUM 130 mmol/L (136-145); TOTAL PROTEIN, SERUM 7.4 g/dL (6.4-8.2)
[2025-03-07 10:47] LABS: UREA NITROGEN, BLOOD 93 mg/dL (7-18)
[2025-03-07 11:57] LABS: CREATINE KINASE, TOTAL 44 U/L (39-308)
[2025-03-08] VITALS: BP 145/86; TEMP 98.1; O2SAT 100
[2025-03-08 04:00] VITALS: BP 143/78; TEMP 98.4; O2SAT 100
[2025-03-08 06:11] LABS: PTH, INTACT 46 pg/mL (15-65)
[2025-03-08 08:00] VITALS: BP 154/88; TEMP 97.5; O2SAT 98
[2025-03-08 12:00] VITALS: BP_SYST 160; BP_SYST 173; BP_DIAS 93; TEMP 97.3; O2SAT 100
[2025-03-08 15:27] LABS: CALCIUM, SERUM 8.3 mg/dL (8.5-10.1); CREATININE 1.3 mg/dL (0.6-1.3); POTASSIUM 3.8 mmol/L (3.5-5.1)
[2025-03-08 16:00] VITALS: BP 168/81; TEMP 97.4; O2SAT 100
[2025-03-08 20:00] VITALS: BP 133/85; TEMP 98.2; O2SAT 99
[2025-03-09] VITALS: BP 111/72; TEMP 98.2; O2SAT 99
[2025-03-09 04:00] VITALS: BP 141/86; TEMP 98.4; O2SAT 99
[2025-03-09 06:50] LABS: BASOPHILS % (AUTO) 0.2 % (0.0-2.0); EOSINOPHILS # (AUTO) 0.2 K/uL (0.0-0.7); EOSINOPHILS % (AUTO) 2.3 % (0.0-6.0); HEMATOCRIT 25 % (39-51); HEMOGLOBIN 8.1 g/dL (13.5-17.5); LYMPHOCYTES # (AUTO) 0.4 K/uL (0.8-4.8); LYMPHOCYTES % (AUTO) 4.4 % (20.0-44.0); MEAN CORPUSCULAR HEMOGLOBIN 31 PG (26.0-33.0); MEAN CORPUSCULAR HGB CONC 32 g/dl (31.0-36.0); MEAN CORPUSCULAR VOLUME 98 fL (80-96); MONOCYTES # (AUTO) 0.3 K/uL (0.1-1.30); MONOCYTES % (AUTO) 2.7 % (2.0-12.0); NEUTROPHILS # (AUTO) 9.3 K/uL (1.8-8.9); NEUTROPHILS % (AUTO) 90.4 % (43.0-81.0); PLATELET COUNT (AUTO) 200 K/uL (150-450); RED BLOOD CELL COUNT(AUTO) 2.59 MIL/uL (4.5-6.0); RED CELL DISTRIBUTION WIDTH 17.5 % (11.5-15.0); WHITE BLOOD COUNT (AUTO) 10.3 K/uL (4.3-11.0)
[2025-03-09 07:09] LABS: ALBUMIN 1.5 g/dL (3.4-5.0); BILIRUBIN,TOTAL 0.3 mg/dL (0.2-1.0); CALCIUM, SERUM 8.3 mg/dL (8.5-10.1); CREATININE 1.3 mg/dL (0.6-1.3); MAGNESIUM 2.4 mg/dL (1.8-2.4); POTASSIUM 3.4 mmol/L (3.5-5.1); TOTAL PROTEIN, SERUM 7.1 g/dL (6.4-8.2)
[2025-03-09 08:00] VITALS: BP 110/66; TEMP 97.9; O2SAT 100
[2025-03-09] MEDS: POTASSIUM CHLORIDE 20 MEQ POWDER PACKET NG SCH (10:54)
[2025-03-09 12:00] VITALS: BP 135/73; TEMP 98.1; O2SAT 99
[2025-03-09 12:07] LABS: *SPE A/G RATIO 0.5 (0.7-1.7); *SPE ALBUMIN 2.1 g/dL (2.9-4.4); *SPE ALPHA-1-GLOBULIN 0.5 g/dL (0.0-0.4); *SPE ALPHA-2-GLOBULIN 0.8 g/dL (0.4-1.0); *SPE BETA GLOBULIN 0.8 g/dL (0.7-1.3); *SPE GLOBULIN, TOTAL 4.5 g/dL (2.2-3.9); *SPE M-SPIKE Not Observed g/dL (Not Observed); *SPE PROTEIN TOTAL 6.6 g/dL (6.0-8.5); *SPEGAMMA GLOBULIN 2.5 g/dL (0.4-1.8)
[2025-03-09 16:00] VITALS: BP 108/69; TEMP 98.1; O2SAT 100
[2025-03-09] MEDS: NEUTRA PHOS 1 POWD.PACKET NG ONE (17:19)
[2025-03-09 20:00] VITALS: BP 114/63; TEMP 94.4; O2SAT 99
[2025-03-10] VITALS (13 sets, daily range): BP systolic 118–149; BP diastolic 61–78; TEMP 97–99.1; O2SAT 99–100
[2025-03-10 06:48] LABS: CALCIUM, SERUM 8.2 mg/dL (8.5-10.1)
[2025-03-10 07:16] LABS: EOSINOPHILS # (AUTO) 0.1 K/uL (0.0-0.7); EOSINOPHILS % (AUTO) 0.7 % (0.0-6.0); HEMATOCRIT 21 % (39-51); LYMPHOCYTES # (AUTO) 0.6 K/uL (0.8-4.8); LYMPHOCYTES % (AUTO) 6.1 % (20.0-44.0); MEAN CORPUSCULAR HEMOGLOBIN 31 PG (26.0-33.0); MEAN CORPUSCULAR HGB CONC 31 g/dl (31.0-36.0); MEAN CORPUSCULAR VOLUME 97 fL (80-96); MONOCYTES # (AUTO) 0.5 K/uL (0.1-1.30); MONOCYTES % (AUTO) 5.5 % (2.0-12.0); NEUTROPHILS # (AUTO) 8.1 K/uL (1.8-8.9); NEUTROPHILS % (AUTO) 87.7 % (43.0-81.0); PLATELET COUNT (AUTO) 131 K/uL (150-450); RED BLOOD CELL COUNT(AUTO) 2.12 MIL/uL (4.5-6.0); RED CELL DISTRIBUTION WIDTH 17.9 % (11.5-15.0); WHITE BLOOD COUNT (AUTO) 9.2 K/uL (4.3-11.0)
[2025-03-10 07:27] LABS: ALANINE AMINOTRANSFERASE 10 U/L (12-78); ALKALINE PHOSPHATASE 206 U/L (46-116); ASPARTATE AMINOTRANSFERASE 15 U/L (15-37); BILIRUBIN,TOTAL 0.3 mg/dL (0.2-1.0); CARBON DIOXIDE 27 mmol/L (21-32); CHLORIDE 102 mmol/L (98-107); CREATININE 1.6 mg/dL (0.6-1.3); GLUCOSE 182 mg/dL (74-106); MAGNESIUM 2.2 mg/dL (1.8-2.4); PHOSPHORUS 1.6 mg/dL (2.5-4.9); POTASSIUM 3.2 mmol/L (3.5-5.1); SODIUM SERUM 136 mmol/L (136-145); TOTAL PROTEIN, SERUM 6.6 g/dL (6.4-8.2)
[2025-03-10 07:31] LABS: UREA NITROGEN, BLOOD 94 mg/dL (7-18)
[2025-03-10 07:33] LABS: ALBUMIN 1.4 g/dL (3.4-5.0)
[2025-03-10 07:53] LABS: HEMOGLOBIN 6.5 g/dL (13.5-17.5)
[2025-03-10 10:35] LABS: LYMPHOCYTES % (MANUAL) 1 % (16-48); MONOCYTES % (MANUAL) 3 % (0-11.0); NEUTROPHILS % (MANUAL) 96 (42-76); PLATELET ESTIMATE DECREASED
[2025-03-10 10:36] LABS: ANISOCYTOSIS 1+
[2025-03-10] MEDS: POTASSIUM CL. PREMIX PERIPHER. 50 ML IV SCH (12:10)
[2025-03-10] MEDS: NEUTRA PHOS 1 POWD.PACKET PO ONE (17:02)
[2025-03-11] MEDS ORDERED: DOCU100T2 GT (17:02)
[2025-03-11] MEDS ORDERED: FERR220E2 GT (17:02)
[2025-03-11] MEDS ORDERED: ASCO500T21 GT (17:02)
[2025-03-11] MEDS ORDERED: NEPRO 1.8 GT (17:02)
== END 2025-03-10 21:15 | DRG 377 ==
LOC: ER 05:39 → ICU 08:27 → TELE-TD 03-03 14:36 → TELE1 03-04 09:32
PROVIDERS: ADMIT Internal Medicine
PROC: 5A1955Z Respiratory Ventilation, Greater than 96 Consecutive Hours (ICD-10-PCS; principal; 2025-03-02)
PROC: 30233N1 Transfusion of Nonautologous Red Blood Cells into Peripheral Vein, Percutaneous Approach (ICD-10-PCS; 2025-03-02)
DX: K92.2 Gastrointestinal hemorrhage, unspecified (principal); E43 Unspecified severe protein-calorie malnutrition; L89.153 Pressure ulcer of sacral region, stage 3; N17.0 Acute kidney failure with tubular necrosis; E87.1 Hypo-osmolality and hyponatremia; D62 Acute posthemorrhagic anemia; J96.10 Chronic respiratory failure, unspecified whether with hypoxia or hypercapnia; N18.4 Chronic kidney disease, stage 4 (severe); Z99.11 Dependence on respirator [ventilator] status; G93.1 Anoxic brain damage, not elsewhere classified; L97.328 Non-pressure chronic ulcer of left ankle with other specified severity; L97.828 Non-pressure chronic ulcer of other part of left lower leg with other specified severity; L97.818 Non-pressure chronic ulcer of other part of right lower leg with other specified severity; E11.22 Type 2 diabetes mellitus with diabetic chronic kidney disease; Z86.73 Personal history of transient ischemic attack (TIA), and cerebral infarction without residual deficits; Z93.0 Tracheostomy status; Z93.1 Gastrostomy status; E78.5 Hyperlipidemia, unspecified; E87.5 Hyperkalemia; Z66 Do not resuscitate; R13.10 Dysphagia, unspecified; I12.9 Hypertensive chronic kidney disease with stage 1 through stage 4 chronic kidney disease, or unspecified chronic kidney disease; E88.09 Other disorders of plasma-protein metabolism, not elsewhere classified; D72.829 Elevated white blood cell count, unspecified; E11.40 Type 2 diabetes mellitus with diabetic neuropathy, unspecified; Z68.28 Body mass index [BMI] 28.0-28.9, adult; L89.116 Pressure-induced deep tissue damage of right upper back; E11.622 Type 2 diabetes mellitus with other skin ulcer; M10.9 Gout, unspecified; N40.0 Benign prostatic hyperplasia without lower urinary tract symptoms; Z79.4 Long term (current) use of insulin; E87.79 Other fluid overload; L89.329 Pressure ulcer of left buttock, unspecified stage; L89.319 Pressure ulcer of right buttock, unspecified stage
CPT/HCPCS: 31720; 36415; 71045-TC; 76770-TC; 80048-TC; 80053-TC; 80076-TC; 82550-TC; 82962-TC; 83735-TC; 83970; 84100-TC; 84155; 84165; 84295-TC; 85025-TC; 85730-TC; 86850-TC; 87081-TC; 94003-TC; 94760-TC; 94762-TC; 94799-TC; 99082-TC; A4223; A4623; A6213; A6403; A7526; G0378; J1815; J2470; J3480; J3490; J7030; J7050; P9016

== ENCOUNTER 2025-03-11 16:01 | Inpatient (IN) | payer OTHER ==
[~2025-03-11] VITALS: Ht 167.6 cm; Wt 83.9 kg
[~2025-03-11 16:01] MED LIST changes: -AMIN30LI66 GT; -ASCO500T10 GT; -BETA45CR3 TP; +CARV3.122 GT; +CICL60SU2 TP; +CLON0.1T GT; -DIPH25TA25 GT; +EPOE1VIA12 SQ; +FERR220E2 PO; +FLUO15CR2 TP; +HYDR-4077 GT; +HYDR453.3 TP; -INSU100I45 SQ; +INSU100V3 SQ; -INSU100V42 SQ; -IVER3TAB2 GT; -KETO15CR2 TP; -LOPE2CAP GT; -LOSA25TA27 GT; -MERO1VIA23 IV; -METO25TA6 GT; -MINO2.5T GT; +MULT-594 GT; -NUT.237L30 GT; -PERM60CR4 TP; +SEVE2.4P3 GT; -ZINC56.713 TP
[2025-03-11] MEDS: IV NS 0.9% 1,000 ML BAG IV ONE (16:26)
[2025-03-11 16:29] LABS: PLATELET COUNT (AUTO) 122 K/uL (150-450); RED BLOOD CELL COUNT(AUTO) 2.77 MIL/uL (4.5-6.0); RED CELL DISTRIBUTION WIDTH 19.2 % (11.5-15.0); WHITE BLOOD COUNT (AUTO) 9.4 K/uL (4.3-11.0)
[2025-03-11] MEDS ORDERED: OLANZAPINE 5 MG TABLET ONE (16:32)
[2025-03-11 16:40] LABS: CALCIUM, SERUM 8.6 mg/dL (8.5-10.1); CREATININE 2.0 mg/dL (0.6-1.3); SODIUM SERUM 132 mmol/L (136-145)
[2025-03-11 16:41] LABS: INR 1.53 (0.91-1.10)
[2025-03-11 16:42] LABS: UREA NITROGEN, BLOOD 94 mg/dL (7-18)
[2025-03-11 16:44] LABS: ASPARTATE AMINOTRANSFERASE 19 U/L (15-37); TOTAL PROTEIN, SERUM 7.3 g/dL (6.4-8.2)
[2025-03-11] MEDS: PANTOPRAZOLE 80 MG in IV NS 0.9% 100 ML IV ONE (16:45)
[2025-03-11] MEDS: ONDANSETRON HCL/PF - ER 4 MG/2 ML VIAL IV ONE (16:55)
[2025-03-11] MEDS ORDERED: NEPRO 1.8 GT (17:02)
[2025-03-11] MEDS ORDERED: DOCU100T2 GT (17:02)
[2025-03-11] MEDS ORDERED: ASCO500T21 GT (17:02)
[2025-03-11] MEDS ORDERED: FERR220E2 GT (17:02)
[2025-03-11] MEDS: DEXTROSE 50%-WATER 50 ML DISP.SYRIN IVP ONE (17:26)
[2025-03-11] MEDS ORDERED: ONDANSETRON HCL/PF 4 MG/2 ML VIAL ONE (17:28)
[2025-03-11] MEDS: PANTOPRAZOLE 80 MG in IV NS 0.9% 500 ML IV ONE (17:30)
[2025-03-11] MEDS ORDERED: ACETAMINOPHEN 325 MG TABLET PO PRN (20:30)
[2025-03-11] MEDS ORDERED: DOSING PER PHARMACY-VANCOMYCIN IV XX PRN (20:30)
[2025-03-11] MEDS ORDERED: MAGNESIUM HYDROXIDE 30 ML UDC PO PRN (20:30)
[2025-03-11] MEDS ORDERED: MAG HYDROX/AL HYDROX/SIMETH 30 ML UDC PO PRN (20:30)
[2025-03-11] MEDS ORDERED: Z GUARD REMEDY 4 OZ OINT TP PRN (20:30)
[2025-03-11] MEDS ORDERED: DEXTROSE 50%-WATER 50 ML DISP.SYRIN IV PRN (21:00)
[2025-03-11] MEDS ORDERED: Medication Not On Formulary EA (Ipratropium/Albuterol Sulfate (Combivent Respimat 20-100 IH PRN (22:30)
[2025-03-11] MEDS ORDERED: BISACODYL SUPP (10 MG) 10 MG/SUPP.RECT SUPP.RECT RC PRN (22:30)
[2025-03-11] MEDS ORDERED: MAGNESIUM HYDROXIDE 30 ML UDC GT PRN (22:30)
[2025-03-11 22:33] LABS: APPEARANCE,URINE TURBID (CLEAR); LEUKOCYTE ESTERASE ,URINE 3+ (NEGATIVE); NITRITE, URINE NEGATIVE (NEGATIVE)
[2025-03-11 22:35] LABS: BLOOD, URINE TRACE Ery/uL (NEGATIVE)
[2025-03-11 22:37] LABS: ADD URINE CULTURE YES; YEAST,URINE Hyphal filaments /HPF (None Seen)
[2025-03-11 22:38] LABS: COARSE GRANULAR CASTS,URINE Few /LPF (None Seen)
[2025-03-11] MEDS ORDERED: ALBUTEROL FS 2.5 MG/0.5 ML VIAL.NEB NEB PRN (23:00)
[2025-03-11] MEDS ORDERED: IPRATROPIUM NEB FS 0.5 MG/2.5 ML AMPUL.NEB IH PRN (23:00)
[2025-03-11] MEDS ORDERED: VANCOMYCIN 500 MG VIAL ONE (23:03)
[2025-03-11] MEDS ORDERED: CEFEPIME 1 GM VIAL ONE (23:03)
[2025-03-11] MEDS: CEFEPIME 1 GM in IV D5W 50 ML IV SCH (23:24)
[2025-03-11] MEDS: VANCOMYCIN 1.5 GM in IV NS 0.9% 500 ML IV ONE (23:55)
[2025-03-12] VITALS: BP 119/58; TEMP 96.8; O2SAT 100
[2025-03-12] MEDS ORDERED: Medication Not On Formulary EA (Ipratropium/Albuterol Sulfate (Combivent Respimat 20-100 IH SCH
[2025-03-12] MEDS: INSULIN REGULAR, HUMAN 100 UNIT/ML 3 ML VIAL SQ PRN (00:20)
[2025-03-12] MEDS: BLOOD SUGAR DIAGNOSTIC 1 EACH STRIP IN SCH (00:20)
[2025-03-12] MEDS: ALBUTEROL FS 2.5 MG/0.5 ML VIAL.NEB NEB SCH (02:15)
[2025-03-12] MEDS: IPRATROPIUM NEB FS 0.5 MG/2.5 ML AMPUL.NEB IH SCH (02:15)
[2025-03-12 04:00] VITALS: BP 130/89; TEMP 97.3; O2SAT 100
[2025-03-12 08:00] VITALS: BP 115/57; TEMP 98.1; O2SAT 94
[2025-03-12] MEDS: SEVELAMER CARBONATE 800 MG POWD.PACK GT SCH (08:06)
[2025-03-12 08:36] LABS: PLATELET COUNT (AUTO) 107 K/uL (150-450); RED BLOOD CELL COUNT(AUTO) 2.53 MIL/uL (4.5-6.0); RED CELL DISTRIBUTION WIDTH 18.6 % (11.5-15.0); WHITE BLOOD COUNT (AUTO) 9.0 K/uL (4.3-11.0)
[2025-03-12 08:43] LABS: CALCIUM, SERUM 8.1 mg/dL (8.5-10.1); CREATININE 2.0 mg/dL (0.6-1.3); PHOSPHORUS 2.4 mg/dL (2.5-4.9); SODIUM SERUM 135.0 mmol/L (136-145)
[2025-03-12 09:26] LABS: UREA NITROGEN, BLOOD 104.0 mg/dL (7-18)
[2025-03-12] MEDS: CARVEDILOL 3.125 MG TABLET GT SCH (09:32)
[2025-03-12] MEDS: PANTOPRAZOLE 40 MG VIAL IV SCH (09:32)
[2025-03-12] MEDS: CHLORHEXIDINE GLUCONATE 15 ML UDC MM SCH (09:33)
[2025-03-12] MEDS: CEFEPIME 2 GM in IV D5W 100 ML IV SCH (09:33)
[2025-03-12] MEDS: MULTIVITAMINS,THERAGRAN 1 UDTAB TABLET GT SCH (09:33)
[2025-03-12] MEDS: ASCORBIC ACID 500 MG TABLET GT SCH (09:33)
[2025-03-12 12:00] VITALS: BP 119/64; TEMP 98.1; O2SAT 97
[2025-03-12] MEDS: SOD FERRIC GLUC 125 MG in IV NS 0.9% 100 ML IV SCH (13:39)
[2025-03-12] MEDS ORDERED: SOD FERRIC GLUC 125 MG in IV NS 0.9% 100 ML IV SCH (14:00)
[2025-03-12 16:00] VITALS: BP 117/66; TEMP 98.1; O2SAT 96
[2025-03-12] MEDS: K PHOS NEUTRAL 250 MG TABLET PO ONE (17:05)
[2025-03-12 20:00] VITALS: BP 120/69; TEMP 97.5; O2SAT 95
[2025-03-12] MEDS: ATORVASTATIN 10 MG TABLET GT SCH (21:10)
[2025-03-12] MEDS: VANCOMYCIN 1 GM in IV D5W 250 ML IV SCH (22:56)
[2025-03-13] VITALS: BP 145/89; TEMP 97.6; O2SAT 99
[2025-03-13 04:00] VITALS: BP 158/85; TEMP 97.5; O2SAT 96
[2025-03-13 06:51] LABS: INR 1.43 (0.91-1.10)
[2025-03-13 07:02] LABS: PLATELET COUNT (AUTO) 106 K/uL (150-450); RED BLOOD CELL COUNT(AUTO) 2.82 MIL/uL (4.5-6.0); RED CELL DISTRIBUTION WIDTH 19.0 % (11.5-15.0); WHITE BLOOD COUNT (AUTO) 11.6 K/uL (4.3-11.0)
[2025-03-13 07:17] LABS: CALCIUM, SERUM 8.6 mg/dL (8.5-10.1); CREATININE 2.1 mg/dL (0.6-1.3); SODIUM SERUM 135.0 mmol/L (136-145)
[2025-03-13 07:38] LABS: UREA NITROGEN, BLOOD 103.0 mg/dL (7-18)
[2025-03-13 08:00] VITALS: BP 156/81; TEMP 97.3; O2SAT 98
[2025-03-13 12:00] VITALS: BP 138/58; TEMP 97.2; O2SAT 97
[2025-03-13 16:00] VITALS: BP 152/80; TEMP 97.5; O2SAT 97
[2025-03-13 20:00] VITALS: BP 150/75; TEMP 98; O2SAT 100
[2025-03-14] VITALS: BP 150/73; TEMP 98; O2SAT 100
[2025-03-14 04:00] VITALS: BP 141/77; TEMP 97.7; O2SAT 98
[2025-03-14] MEDS: IV NS 0.9% 1,000 ML IV PRN (05:03)
[2025-03-14] MEDS: NEPRO 1,000 ML BOTTLE GT PRN (05:03)
[2025-03-14 07:14] LABS: PLATELET COUNT (AUTO) 96 K/uL (150-450); RED BLOOD CELL COUNT(AUTO) 2.72 MIL/uL (4.5-6.0); RED CELL DISTRIBUTION WIDTH 18.4 % (11.5-15.0); WHITE BLOOD COUNT (AUTO) 13.2 K/uL (4.3-11.0)
[2025-03-14 07:26] LABS: CALCIUM, SERUM 8.4 mg/dL (8.5-10.1); CREATININE 2.0 mg/dL (0.6-1.3); SODIUM SERUM 134.0 mmol/L (136-145)
[2025-03-14 08:00] VITALS: BP 150/75; TEMP 97; O2SAT 100
[2025-03-14 08:00] LABS: UREA NITROGEN, BLOOD 101.0 mg/dL (7-18)
[2025-03-14] MEDS ORDERED: FERROUS SULFATE UDC 300 MG/5 ML UDC GT SCH (09:00)
[2025-03-14 09:38] LABS: ABG BASE EXCESS -4.6 mmol/L (-2.0-3.0); ABG OXYGEN SATURATION 98.2 % (94.0-98.0); ABG PCO2 45.1 mmHg (35.0-48.0); ABG PH 7.298 (7.350-7.450); ABG PO2 114.7 mmHg (83.0-108.0); ABG TOTAL HEMOGLOBIN 8.8 G/dL (13.5-17.5); PEEP,BG 5 cm H2O; SET RATE, BG 16.0; SITE, ABG RIGHT RADIAL; VT, ABG 500 mL
[2025-03-14 12:00] VITALS: BP 115/57; TEMP 97.5; O2SAT 100
[2025-03-14] MEDS: POTASSIUM CL. PREMIX PERIPHER. 50 ML IV SCH (13:58)
[2025-03-14 15:25] LABS: EOSINOPHILS % (MANUAL) 3 % (0-4); LYMPHOCYTES % (MANUAL) 5 % (16-48); MONOCYTES % (MANUAL) 5 % (0-11.0); NEUTROPHILS % (MANUAL) 87 (42-76); PLATELET ESTIMATE DECREASED
[2025-03-14 16:00] VITALS: BP 139/69; TEMP 97.7; O2SAT 100
[2025-03-14] MEDS ORDERED: ALBUMIN 25% 12.5 GM/50 ML BOTTLE IV ONE (16:00)
[2025-03-14 17:14] LABS: PROTEIN, BODY FLUID 2.8 G/DL
[2025-03-14] MEDS: ALBUMIN 25% 12.5 GM in PREMIX 1 EA IV ONE (17:26)
[2025-03-14] MEDS: ONDANSETRON HCL/PF 4 MG/2 ML VIAL IVP PRN (17:40)
[2025-03-14 20:00] VITALS: BP 125/70; TEMP 97.5; O2SAT 100
[2025-03-14 20:45] LABS: APPEARANCE,SPUN,BODY FLUID CLEAR (CLEAR); TOTAL VOLUME,BODY FLUID 1500 mL; WBC, BODY FLUID 97 /cu. mm. (0-200)
[2025-03-14 20:46] LABS: MONOCYTES,BODY FLUID 1 %
[2025-03-14] MEDS: CEFEPIME 2 GM in IV D5W 100 ML IV SCH (21:06)
[2025-03-15] VITALS: BP 121/73; TEMP 97.7; O2SAT 100
[2025-03-15 04:00] VITALS: BP 122/62; TEMP 97.9; O2SAT 100
[2025-03-15 06:39] LABS: PLATELET COUNT (AUTO) 86 K/uL (150-450); RED BLOOD CELL COUNT(AUTO) 2.59 MIL/uL (4.5-6.0); RED CELL DISTRIBUTION WIDTH 18.3 % (11.5-15.0); WHITE BLOOD COUNT (AUTO) 11.7 K/uL (4.3-11.0)
[2025-03-15 08:00] VITALS: BP 123/64; TEMP 97.7; O2SAT 100
[2025-03-15 09:07] LABS: CALCIUM, SERUM 8.5 mg/dL (8.5-10.1); CREATININE 2.2 mg/dL (0.6-1.3)
[2025-03-15 09:12] LABS: UREA NITROGEN, BLOOD 102.0 mg/dL (7-18)
[2025-03-15 09:16] LABS: SODIUM SERUM 136.0 mmol/L (136-145)
[2025-03-15] MEDS: THERAHONEY GEL 1.5 OZ TUBE TP SCH (09:36)
[2025-03-15 09:54] LABS: BASOPHILS % (MANUAL) 0 % (0.0-2.0); EOSINOPHILS % (MANUAL) 1 % (0-4); LYMPHOCYTES % (MANUAL) 4 % (16-48); MONOCYTES % (MANUAL) 3 % (0-11.0); NEUTROPHILS % (MANUAL) 92 (42-76); PLATELET ESTIMATE DECREASED
[2025-03-15 12:00] VITALS: BP 138/76; TEMP 97.5; O2SAT 100
[2025-03-15 16:00] VITALS: BP 114/60; TEMP 97.3; O2SAT 97
[2025-03-15 20:00] VITALS: BP 133/71; TEMP 97.4; O2SAT 97
[2025-03-15] MEDS ORDERED: VANCOMYCIN 1 GM in IV D5W 250ml IV SCH (23:00)
[2025-03-16] VITALS: BP 140/73; TEMP 96.4; O2SAT 96
[2025-03-16 04:00] VITALS: BP 129/68; TEMP 97; O2SAT 98
[2025-03-16 08:00] VITALS: BP 141/77; TEMP 97.5; O2SAT 98
[2025-03-16] MEDS: FERROUS SULFATE UDC 300 MG/5 ML UDC GT SCH (08:43)
[2025-03-16 10:53] LABS: CALCIUM, SERUM 8.6 mg/dL (8.5-10.1); CREATININE 2.2 mg/dL (0.6-1.3); SODIUM SERUM 137.0 mmol/L (136-145)
[2025-03-16 12:00] VITALS: BP 134/63; TEMP 97.3; O2SAT 100
[2025-03-16 12:07] LABS: UREA NITROGEN, BLOOD 104.0 mg/dL (7-18)
[2025-03-16 16:00] VITALS: BP 123/57; TEMP 97.2; O2SAT 100
[2025-03-16] MEDS ORDERED: DOSING PER PHARMACY-ZOSYN IV 1 EA EA IV PRN (17:30)
[2025-03-16] MEDS: ZOSYN IVPB 3.375 G in IV D5W 50ml IV SCH (18:08)
[2025-03-16 20:00] VITALS: BP 146/69; TEMP 97.3; O2SAT 100
[2025-03-17] VITALS: BP 108/82; TEMP 97.5; O2SAT 100
[2025-03-17 04:00] VITALS: BP 133/69; TEMP 97.5; O2SAT 100
[2025-03-17 06:48] LABS: PLATELET COUNT (AUTO) 85 K/uL (150-450); RED BLOOD CELL COUNT(AUTO) 2.61 MIL/uL (4.5-6.0); RED CELL DISTRIBUTION WIDTH 18.9 % (11.5-15.0); WHITE BLOOD COUNT (AUTO) 15.1 K/uL (4.3-11.0)
[2025-03-17 07:28] LABS: CALCIUM, SERUM 8.8 mg/dL (8.5-10.1); SODIUM SERUM 136.0 mmol/L (136-145)
[2025-03-17 07:44] LABS: CREATININE 2.2 mg/dL (0.6-1.3)
[2025-03-17 07:54] LABS: UREA NITROGEN, BLOOD 106.0 mg/dL (7-18)
[2025-03-17 08:00] VITALS: BP 116/66; TEMP 98.2; O2SAT 100
[2025-03-17] MEDS: PANTOPRAZOLE 40 MG/PACK PACK GT SCH (08:38)
[2025-03-17 12:00] VITALS: BP 124/62; TEMP 98.2; O2SAT 100
[2025-03-17 13:27] LABS: EOSINOPHILS % (MANUAL) 1 % (0-4); LYMPHOCYTES % (MANUAL) 3 % (16-48); MONOCYTES % (MANUAL) 1 % (0-11.0); NEUTROPHILS % (MANUAL) 95 (42-76); PLATELET ESTIMATE DECREASED
[2025-03-17 16:00] VITALS: BP 119/63; TEMP 97.7; O2SAT 100
[2025-03-17 20:00] VITALS: BP 138/69; TEMP 97.5; O2SAT 97
[2025-03-18] VITALS (7 sets, daily range): BP systolic 112–152; BP diastolic 57–94; TEMP 97.3–97.9; O2SAT 98–100
[2025-03-18 07:06] LABS: CALCIUM, SERUM 8.8 mg/dL (8.5-10.1); CREATININE 2.3 mg/dL (0.6-1.3); SODIUM SERUM 133.0 mmol/L (136-145)
[2025-03-18 07:38] LABS: UREA NITROGEN, BLOOD 106.0 mg/dL (7-18)
[2025-03-18] MEDS ORDERED: FERROUS SULFATE UDC 300 MG/5 ML UDC GT SCH (09:00)
[2025-03-18] MEDS: POTASSIUM CHLORIDE 20 MEQ POWDER PACKET GT SCH (09:36)
[2025-03-19] VITALS (8 sets, daily range): BP systolic 103–141; BP diastolic 56–81; TEMP 97.3–98.1; O2SAT 98–100
[2025-03-19 08:03] LABS: ASPARTATE AMINOTRANSFERASE 25.0 U/L (15-37); CALCIUM, SERUM 8.6 mg/dL (8.5-10.1); CREATININE 2.2 mg/dL (0.6-1.3); SODIUM SERUM 135.0 mmol/L (136-145); TOTAL PROTEIN, SERUM 7.0 g/dL (6.4-8.2)
[2025-03-19 09:51] LABS: UREA NITROGEN, BLOOD 102.0 mg/dL (7-18)
[2025-03-19] MEDS: FUROSEMIDE 40 MG/4 ML VIAL IV SCH (11:51)
[2025-03-20] VITALS: BP 118/62; TEMP 97.7; O2SAT 100
[2025-03-20 04:00] VITALS: BP 132/67; TEMP 97.3; O2SAT 100
[2025-03-20 08:00] VITALS: BP 152/59; TEMP 97.5; O2SAT 100
[2025-03-20 08:25] LABS: PLATELET COUNT (AUTO) 70 K/uL (150-450); RED BLOOD CELL COUNT(AUTO) 2.79 MIL/uL (4.5-6.0); RED CELL DISTRIBUTION WIDTH 18.1 % (11.5-15.0); WHITE BLOOD COUNT (AUTO) 7.4 K/uL (4.3-11.0)
[2025-03-20 09:16] LABS: ASPARTATE AMINOTRANSFERASE 26.0 U/L (15-37); CALCIUM, SERUM 8.5 mg/dL (8.5-10.1); CREATININE 1.9 mg/dL (0.6-1.3); PHOSPHORUS 1.1 mg/dL (2.5-4.9); TOTAL PROTEIN, SERUM 7.1 g/dL (6.4-8.2)
[2025-03-20 09:32] LABS: SODIUM SERUM 137.0 mmol/L (136-145)
[2025-03-20 10:02] LABS: UREA NITROGEN, BLOOD 79.0 mg/dL (7-18)
[2025-03-20 12:00] VITALS: BP 132/67; TEMP 97.9; O2SAT 100
[2025-03-20 12:19] LABS: EOSINOPHILS % (MANUAL) 1 % (0-4); LYMPHOCYTES % (MANUAL) 9 % (16-48); MONOCYTES % (MANUAL) 4 % (0-11.0); NEUTROPHILS % (MANUAL) 86 (42-76)
[2025-03-20 12:20] LABS: PLATELET ESTIMATE DECREASED
[2025-03-20] MEDS: PIPERACILLIN /TAZOBACTAM 2.25 G in IV D5W 50 ML IV SCH (13:30)
[2025-03-20 16:31] VITALS: BP 137/69; TEMP 97.3; O2SAT 100
[2025-03-20] MEDS: PROSOURCE / PROSTAT (PYXIS) 30 ML UDC GT SCH (16:58)
[2025-03-20] MEDS: NEUTRA PHOS 1 POWD.PACKET GT ONE (16:58)
[2025-03-20 20:00] VITALS: BP 137/69; TEMP 97.7; O2SAT 100
[2025-03-21] VITALS: BP 137/65; TEMP 97.7; O2SAT 100
[2025-03-21 04:00] VITALS: BP 140/78; TEMP 98.2; O2SAT 100
[2025-03-21 06:46] LABS: PLATELET COUNT (AUTO) 65 K/uL (150-450); RED BLOOD CELL COUNT(AUTO) 2.55 MIL/uL (4.5-6.0); RED CELL DISTRIBUTION WIDTH 18.1 % (11.5-15.0); WHITE BLOOD COUNT (AUTO) 7.6 K/uL (4.3-11.0)
[2025-03-21 08:00] VITALS: BP 148/83; TEMP 98.4; O2SAT 100
[2025-03-21 08:55] LABS: ASPARTATE AMINOTRANSFERASE 38.0 U/L (15-37); CALCIUM, SERUM 8.1 mg/dL (8.5-10.1); CREATININE 1.7 mg/dL (0.6-1.3); SODIUM SERUM 134.0 mmol/L (136-145); TOTAL PROTEIN, SERUM 7.0 g/dL (6.4-8.2); UREA NITROGEN, BLOOD 59.0 mg/dL (7-18)
[2025-03-21 08:58] LABS: PHOSPHORUS 1.0 mg/dL (2.5-4.9)
[2025-03-21] MEDS ORDERED: NEUTRA PHOS 1 POWD.PACKET GT ONE (10:30)
[2025-03-21] MEDS: NEUTRA PHOS 1 POWD.PACKET GT ONE ×2 (11:12→15:11)
[2025-03-21 12:00] VITALS: BP 150/81; TEMP 98.4; O2SAT 100
[2025-03-21 14:47] LABS: NEUTROPHILS % (MANUAL) 88 (42-76)
[2025-03-21 14:48] LABS: EOSINOPHILS % (MANUAL) 4 % (0-4); LYMPHOCYTES % (MANUAL) 3 % (16-48); MONOCYTES % (MANUAL) 5 % (0-11.0); PLATELET ESTIMATE DECREASED
[2025-03-21 16:00] VITALS: BP 167/81; TEMP 98.4; O2SAT 95
[2025-03-21 20:00] VITALS: BP 118/52; TEMP 98.4; O2SAT 95
[2025-03-22] VITALS: BP 144/75; TEMP 97.5; O2SAT 100
[2025-03-22 01:07] LABS: HEPATITIS B CORE AB, IgM Negative (Negative); HEPATITIS B CORE AB, TOTAL Positive (Negative); HEPATITIS B SURFACE AB (QUAL) Non Reactive (.)
[2025-03-22 04:00] VITALS: BP 133/75; TEMP 98.6; O2SAT 100
[2025-03-22 06:49] LABS: ASPARTATE AMINOTRANSFERASE 46.0 U/L (15-37); CALCIUM, SERUM 7.9 mg/dL (8.5-10.1); CREATININE 1.6 mg/dL (0.6-1.3); PHOSPHORUS 1.5 mg/dL (2.5-4.9); SODIUM SERUM 135.0 mmol/L (136-145); TOTAL PROTEIN, SERUM 7.2 g/dL (6.4-8.2); UREA NITROGEN, BLOOD 49.0 mg/dL (7-18)
[2025-03-22 06:55] LABS: PLATELET COUNT (AUTO) 72 K/uL (150-450); RED BLOOD CELL COUNT(AUTO) 2.72 MIL/uL (4.5-6.0); RED CELL DISTRIBUTION WIDTH 18.6 % (11.5-15.0); WHITE BLOOD COUNT (AUTO) 9.7 K/uL (4.3-11.0)
[2025-03-22 08:00] VITALS: BP 130/73; TEMP 98.1; O2SAT 100
[2025-03-22 09:11] LABS: LYMPHOCYTES % (MANUAL) 6 % (16-48); MONOCYTES % (MANUAL) 4 % (0-11.0); NEUTROPHILS % (MANUAL) 90 (42-76); PLATELET ESTIMATE DECREASED
[2025-03-22] MEDS: NEUTRA PHOS 1 POWD.PACKET PO ONE (10:16)
[2025-03-22] MEDS: NEUTRA PHOS 1 POWD.PACKET GT ONE ×2 (11:36→16:21)
[2025-03-22 12:00] VITALS: BP 136/80; TEMP 97.7; O2SAT 100
[2025-03-22 16:00] VITALS: BP 144/69; TEMP 98.4; O2SAT 100
[2025-03-22 20:00] VITALS: BP 163/73; TEMP 98.2; O2SAT 100
[2025-03-22] MEDS: CLONIDINE HCL 0.1 MG TABLET GT PRN (20:29)
[2025-03-23] VITALS: BP 121/61; TEMP 97.7; O2SAT 100
[2025-03-23 04:00] VITALS: BP 141/83; TEMP 98.4; O2SAT 100
[2025-03-23] MEDS ORDERED: ANESTHESIA TRAY IN PYXIS 1 EA TRAY MC ONE (07:51)
[2025-03-23] MEDS ORDERED: IOHEXOL 240MG/ML 0 ML IV ONE (07:51)
[2025-03-23] MEDS ORDERED: LIDOCAINE 1% INJ 50 ML MDV IJ ONE (07:52)
[2025-03-23] MEDS ORDERED: HEPARIN SODIUM, PORCINE 1,000 UNIT/ML VIAL ONE (07:52)
[2025-03-23 08:00] VITALS: BP 106/64; TEMP 98.4; O2SAT 96
[2025-03-23 08:21] LABS: PLATELET COUNT (AUTO) 72 K/uL (150-450); RED BLOOD CELL COUNT(AUTO) 2.84 MIL/uL (4.5-6.0); RED CELL DISTRIBUTION WIDTH 18.5 % (11.5-15.0); WHITE BLOOD COUNT (AUTO) 6.5 K/uL (4.3-11.0)
[2025-03-23 08:42] LABS: ASPARTATE AMINOTRANSFERASE 54.0 U/L (15-37); CALCIUM, SERUM 8.1 mg/dL (8.5-10.1); CREATININE 1.5 mg/dL (0.6-1.3); PHOSPHORUS 1.7 mg/dL (2.5-4.9); SODIUM SERUM 136.0 mmol/L (136-145); TOTAL PROTEIN, SERUM 7.7 g/dL (6.4-8.2); UREA NITROGEN, BLOOD 39.0 mg/dL (7-18)
[2025-03-23 09:42] LABS: EOSINOPHILS % (MANUAL) 4 % (0-4); LYMPHOCYTES % (MANUAL) 10 % (16-48); MONOCYTES % (MANUAL) 5 % (0-11.0); NEUTROPHILS % (MANUAL) 81 (42-76); PLATELET ESTIMATE DECREASED
[2025-03-23] MEDS: NEUTRA PHOS 1 POWD.PACKET PO ONE (10:31)
[2025-03-23] MEDS: Magnesium 1GM/D5W 100ML PREMIX 100 ML IV SCH (10:31)
[2025-03-23 12:00] VITALS: BP 111/59; TEMP 97.5; O2SAT 99
[2025-03-23 16:00] VITALS: BP 130/69; TEMP 97.5; O2SAT 100
[2025-03-23 20:00] VITALS: BP 120/58; TEMP 97; O2SAT 100
[2025-03-23] MEDS: VANCOMYCIN 1 GM /D5W 250 ML PB IV ONE (23:13)
[2025-03-24] VITALS: BP 122/55; TEMP 96.8; O2SAT 100
[2025-03-24 04:00] VITALS: BP 143/76; TEMP 97.3; O2SAT 100
[2025-03-24 07:34] LABS: PLATELET COUNT (AUTO) 74 K/uL (150-450); RED BLOOD CELL COUNT(AUTO) 2.77 MIL/uL (4.5-6.0); RED CELL DISTRIBUTION WIDTH 18.5 % (11.5-15.0); WHITE BLOOD COUNT (AUTO) 6.7 K/uL (4.3-11.0)
[2025-03-24 08:00] VITALS: BP 114/76; TEMP 97.9; O2SAT 99
[2025-03-24 08:04] LABS: ASPARTATE AMINOTRANSFERASE 37 U/L (15-37); CALCIUM, SERUM 8.2 mg/dL (8.5-10.1); CREATININE 2.1 mg/dL (0.6-1.3); NT-PRO BNP > 25000 pg/mL (0-125); PHOSPHORUS 2.5 mg/dL (2.5-4.9); SODIUM SERUM 136 mmol/L (136-145); TOTAL PROTEIN, SERUM 7.6 g/dL (6.4-8.2); UREA NITROGEN, BLOOD 51 mg/dL (7-18)
[2025-03-24 08:47] LABS: EOSINOPHILS % (MANUAL) 1 % (0-4); LYMPHOCYTES % (MANUAL) 8 % (16-48); MONOCYTES % (MANUAL) 5 % (0-11.0); NEUTROPHILS % (MANUAL) 86 (42-76); PLATELET ESTIMATE DECREASED
[2025-03-24 12:00] VITALS: BP 135/78; TEMP 98.4; O2SAT 97
[2025-03-24 16:00] VITALS: BP 126/63; TEMP 98.6; O2SAT 99
[2025-03-24 20:00] VITALS: BP 125/57; TEMP 98.8; O2SAT 100
[2025-03-25] VITALS: BP 117/64; TEMP 98.6; O2SAT 98
[2025-03-25 04:00] VITALS: BP 130/54; TEMP 98.1; O2SAT 97
[2025-03-25 08:00] VITALS: BP 112/61; TEMP 98.1; O2SAT 97
[2025-03-25 08:17] LABS: PLATELET COUNT (AUTO) 73 K/uL (150-450); RED BLOOD CELL COUNT(AUTO) 2.46 MIL/uL (4.5-6.0); RED CELL DISTRIBUTION WIDTH 18.9 % (11.5-15.0); WHITE BLOOD COUNT (AUTO) 10.9 K/uL (4.3-11.0)
[2025-03-25 08:47] LABS: ASPARTATE AMINOTRANSFERASE 62.0 U/L (15-37); CALCIUM, SERUM 8.0 mg/dL (8.5-10.1); CREATININE 1.8 mg/dL (0.6-1.3); PHOSPHORUS 1.6 mg/dL (2.5-4.9); SODIUM SERUM 136.0 mmol/L (136-145); TOTAL PROTEIN, SERUM 7.4 g/dL (6.4-8.2); UREA NITROGEN, BLOOD 40.0 mg/dL (7-18)
[2025-03-25] MEDS: NEUTRA PHOS 1 POWD.PACKET PO ONE (10:25)
[2025-03-25 11:27] LABS: LYMPHOCYTES % (MANUAL) 8 % (16-48); MONOCYTES % (MANUAL) 5 % (0-11.0); NEUTROPHILS % (MANUAL) 87 (42-76); PLATELET ESTIMATE DECREASED
[2025-03-25 12:00] VITALS: BP 102/56; TEMP 98.1; O2SAT 97
[2025-03-25 16:00] VITALS: BP 100/65; TEMP 99; O2SAT 100
[2025-03-25 20:00] VITALS: BP 100/65; TEMP 99; O2SAT 100
[2025-03-26] VITALS (39 sets, daily range): BP systolic 63–123; BP diastolic 37–63; TEMP 97.2–98.7; O2SAT 95–100
[2025-03-26 07:36] LABS: PLATELET COUNT (AUTO) 66 K/uL (150-450); RED BLOOD CELL COUNT(AUTO) 2.21 MIL/uL (4.5-6.0); RED CELL DISTRIBUTION WIDTH 19.0 % (11.5-15.0); WHITE BLOOD COUNT (AUTO) 7.4 K/uL (4.3-11.0)
[2025-03-26 07:48] LABS: ASPARTATE AMINOTRANSFERASE 46.0 U/L (15-37); CALCIUM, SERUM 8.0 mg/dL (8.5-10.1); CREATININE 1.7 mg/dL (0.6-1.3); SODIUM SERUM 137.0 mmol/L (136-145); TOTAL PROTEIN, SERUM 6.9 g/dL (6.4-8.2); UREA NITROGEN, BLOOD 32.0 mg/dL (7-18)
[2025-03-26] MEDS: PROSOURCE / PROSTAT (PYXIS) 30 ML UDC GT SCH (09:11)
[2025-03-26] MEDS: MIDODRINE HCL (5MG) 5 MG TABLET GT SCH (11:30)
[2025-03-26 11:41] LABS: LYMPHOCYTES % (MANUAL) 5 % (16-48); MONOCYTES % (MANUAL) 5 % (0-11.0); NEUTROPHILS % (MANUAL) 90 (42-76)
[2025-03-26 11:42] LABS: PLATELET ESTIMATE DECREASED
[2025-03-26] MEDS: NOREPINEPHRINE 8 MG in IV D5W 250ML IV PRN ×2 (16:41→16:51)
[2025-03-26] MEDS: NOREPINEPHRINE 8 MG in IV D5W 242 ML IV PRN (16:51)
[2025-03-26] MEDS: PHENYLEPHRINE 50 MG in IV NS 0.9% 245 ML IV PRN (19:37)
[2025-03-27] VITALS (97 sets, daily range): BP systolic 82–123; BP diastolic 44–67; TEMP 98.1–99.3; O2SAT 96–100
[2025-03-27 05:06] LABS: PLATELET COUNT (AUTO) 87 K/uL (150-450); RED BLOOD CELL COUNT(AUTO) 2.60 MIL/uL (4.5-6.0); RED CELL DISTRIBUTION WIDTH 18.9 % (11.5-15.0); WHITE BLOOD COUNT (AUTO) 12.9 K/uL (4.3-11.0)
[2025-03-27 05:13] LABS: ASPARTATE AMINOTRANSFERASE 48.0 U/L (15-37); CALCIUM, SERUM 8.7 mg/dL (8.5-10.1); CREATININE 2.1 mg/dL (0.6-1.3); SODIUM SERUM 135.0 mmol/L (136-145); TOTAL PROTEIN, SERUM 7.2 g/dL (6.4-8.2); UREA NITROGEN, BLOOD 44.0 mg/dL (7-18)
[2025-03-27 05:42] LABS: LYMPHOCYTES % (MANUAL) 6 % (16-48); MONOCYTES % (MANUAL) 7 % (0-11.0); NEUTROPHILS % (MANUAL) 87 (42-76); PLATELET ESTIMATE DECREASED
[2025-03-27] MEDS: NEPRO 1,000 ML BOTTLE GT SCH (07:20)
[2025-03-28] VITALS (90 sets, daily range): BP systolic 47–129; BP diastolic 27–81; TEMP 97.9–99; O2SAT 90–100
[2025-03-28 10:00] LABS: PLATELET COUNT (AUTO) 95 K/uL (150-450); RED BLOOD CELL COUNT(AUTO) 2.96 MIL/uL (4.5-6.0); RED CELL DISTRIBUTION WIDTH 19.6 % (11.5-15.0); WHITE BLOOD COUNT (AUTO) 8.3 K/uL (4.3-11.0)
[2025-03-28 10:15] LABS: CALCIUM, SERUM 9.0 mg/dL (8.5-10.1); CREATININE 1.9 mg/dL (0.6-1.3); PHOSPHORUS 1.9 mg/dL (2.5-4.9); SODIUM SERUM 137.0 mmol/L (136-145); UREA NITROGEN, BLOOD 35.0 mg/dL (7-18)
[2025-03-28 11:20] LABS: LYMPHOCYTES % (MANUAL) 10 % (16-48); MONOCYTES % (MANUAL) 5 % (0-11.0); NEUTROPHILS % (MANUAL) 85 (42-76); PLATELET ESTIMATE DECREASED
[2025-03-28] MEDS: PHENYLEPHRINE 100 MG in IV NS 0.9% 240 ML IV PRN (13:15)
[2025-03-28] MEDS: POTASSIUM PHOSPHATE MM 5 MMOL in IV NS 0.9% 100 ML IV SCH (14:31)
[2025-03-28] MEDS ORDERED: VASOPRESSIN INJ 40 UNIT in IV NS 0.9% 38 ML IV PRN (16:30)
[2025-03-28] MEDS ORDERED: DOSING PER PHARMACY-VANCOMYCIN IV IV PRN (16:30)
[2025-03-28] MEDS: VANCOMYCIN 1 GM in IV D5W 250 ML IV ONE (17:48)
[2025-03-28] MEDS ORDERED: MIDAZOLAM HCL 100 MG in IV NS 0.9% 80 ML IV PRN (18:30)
[2025-03-28] MEDS ORDERED: LORAZEPAM INJ 2 MG/ML VIAL IV PRN (20:00)
[2025-03-28] MEDS: MICAFUNGIN SODIUM 100 MG in IV NS 0.9% 100 ML IV SCH (20:00)
[2025-03-28] MEDS: MORPHINE SULFATE INJ 4 MG/ML DISP.SYRIN IV PRN (20:56)
[2025-03-28] MEDS ORDERED: LORAZEPAM 4 MG/ML VIAL IV PRN (21:00)
[2025-03-28] MEDS ORDERED: MORPHINE SULFATE INJ 2 MG/ML DISP.SYRIN IV PRN (21:00)
[2025-03-28] MEDS ORDERED: MEROPENEM 1 G in IV NS 0.9% 100 ML IV SCH (21:00)
[2025-03-29] MEDS ORDERED: VANCOMYCIN 500 MG in IV D5W 100 ML IV PRN (06:00)
== END 2025-03-28 23:42 | DRG 870 ==
LOC: ER 16:03 → ICUOV 21:23 → TELE-TD 22:03 → TELE1 03-12 16:42 → ICU 03-26 16:28
PROVIDERS: ATTEND Nurse Practitioner Acute Care
PROC: 5A1955Z Respiratory Ventilation, Greater than 96 Consecutive Hours (ICD-10-PCS; principal; 2025-03-11)
PROC: 0W993ZZ Drainage of Right Pleural Cavity, Percutaneous Approach (ICD-10-PCS; 2025-03-14)
PROC: 05HB33Z Insertion of Infusion Device into Right Basilic Vein, Percutaneous Approach (ICD-10-PCS; 2025-03-16)
PROC: B54MZZA Ultrasonography of Right Upper Extremity Veins, Guidance (ICD-10-PCS; 2025-03-16)
PROC: 06HY33Z Insertion of Infusion Device into Lower Vein, Percutaneous Approach (ICD-10-PCS; 2025-03-19)
PROC: 5A1D70Z Performance of Urinary Filtration, Intermittent, Less than 6 Hours Per Day (ICD-10-PCS; 2025-03-19)
PROC: 30233N1 Transfusion of Nonautologous Red Blood Cells into Peripheral Vein, Percutaneous Approach (ICD-10-PCS; 2025-03-19)
PROC: 0JH63XZ Insertion of Tunneled Vascular Access Device into Chest Subcutaneous Tissue and Fascia, Percutaneous Approach (ICD-10-PCS; 2025-03-23)
PROC: 02HV33Z Insertion of Infusion Device into Superior Vena Cava, Percutaneous Approach (ICD-10-PCS; 2025-03-23)
PROC: B518YZA Fluoroscopy of Superior Vena Cava using Other Contrast, Guidance (ICD-10-PCS; 2025-03-23)
DX: A41.9 Sepsis, unspecified organism (principal); L89.153 Pressure ulcer of sacral region, stage 3; L89.113 Pressure ulcer of right upper back, stage 3; E43 Unspecified severe protein-calorie malnutrition; Z51.5 Encounter for palliative care; G93.41 Metabolic encephalopathy; N17.0 Acute kidney failure with tubular necrosis; R65.21 Severe sepsis with septic shock; J15.69 Pneumonia due to other Gram-negative bacteria; J96.01 Acute respiratory failure with hypoxia; J95.851 Ventilator associated pneumonia; K92.2 Gastrointestinal hemorrhage, unspecified; D68.59 Other primary thrombophilia; Z99.11 Dependence on respirator [ventilator] status; B37.49 Other urogenital candidiasis; E87.1 Hypo-osmolality and hyponatremia; R40.3 Persistent vegetative state; R18.8 Other ascites; J93.9 Pneumothorax, unspecified; J90 Pleural effusion, not elsewhere classified; I50.32 Chronic diastolic (congestive) heart failure; J96.11 Chronic respiratory failure with hypoxia; L97.818 Non-pressure chronic ulcer of other part of right lower leg with other specified severity; L97.328 Non-pressure chronic ulcer of left ankle with other specified severity; L97.828 Non-pressure chronic ulcer of other part of left lower leg with other specified severity; J98.11 Atelectasis; D62 Acute posthemorrhagic anemia; D69.6 Thrombocytopenia, unspecified; N18.9 Chronic kidney disease, unspecified; Z66 Do not resuscitate; Z74.01 Bed confinement status; Z93.0 Tracheostomy status; Z93.1 Gastrostomy status; E78.5 Hyperlipidemia, unspecified; E83.39 Other disorders of phosphorus metabolism; E87.6 Hypokalemia; E88.09 Other disorders of plasma-protein metabolism, not elsewhere classified; Z79.4 Long term (current) use of insulin; Z86.73 Personal history of transient ischemic attack (TIA), and cerebral infarction without residual deficits; B96.4 Proteus (mirabilis) (morganii) as the cause of diseases classified elsewhere; K82.8 Other specified diseases of gallbladder; N40.1 Benign prostatic hyperplasia with lower urinary tract symptoms; K57.30 Diverticulosis of large intestine without perforation or abscess without bleeding; R13.10 Dysphagia, unspecified; F03.90 Unspecified dementia, unspecified severity, without behavioral disturbance, psychotic disturbance, mood disturbance, and anxiety; E11.40 Type 2 diabetes mellitus with diabetic neuropathy, unspecified; E11.22 Type 2 diabetes mellitus with diabetic chronic kidney disease; Z68.29 Body mass index [BMI] 29.0-29.9, adult; D63.8 Anemia in other chronic diseases classified elsewhere; L98.8 Other specified disorders of the skin and subcutaneous tissue; E11.622 Type 2 diabetes mellitus with other skin ulcer; Y83.3 Surgical operation with formation of external stoma as the cause of abnormal reaction of the patient, or of later complication, without mention of misadventure at the time of the procedure; Y92.129 Unspecified place in nursing home as the place of occurrence of the external cause
CPT/HCPCS: 31720; 36410; 36415; 36600; 71045-TC; 71250-TC; 76705-TC; 76770-TC; 80048-TC; 80053-TC; 80076-TC; 80202-TC; 81001; 82533; 82803-TC; 82962-TC; 83605-TC; 83690-TC; 83735-TC; 83880; 84100-TC; 85025-TC; 85027-TC; 85610-TC; 85730-TC; 86704; 86705; 86706; 86803; 86850-TC; 87040-TC; 87070-TC; 87081-TC; 87086-TC; 87102-TC; 87186-TC; 87205-TC; 87340; 89051-TC; 90935-TC; 94002-TC; 94003-TC; 94760-TC; 94761-TC; 94762-TC; 94799-TC; 99082-TC; A4216; A4223; A4565; A4623; A6213; A6253; A6403; A7526; C1750; C1752; G0378; J0690; J0692; J1200; J1644; J1815; J1938; J2060; J2185; J2248; J2250; J2270; J2405; J2470; J2543; J2916; J3370; J3371; J3475; J3480; J3490; J7030; J7040; J7042; J7050; J7060; P9016; P9047; Q9966